=== PATIENT | male | born 1960 | race Hispanic/Latino ===

== ENCOUNTER 2017-05-31 12:36 | Inpatient (IN) | payer BC ==
[~2017-05-31] VITALS: Ht 177.8 cm; Wt 105.3 kg
[2017-05-31] MEDS ORDERED: CLINDAMYCIN HC150 MG PO (13:05)
[2017-05-31] MEDS ORDERED: AMLODIPINE BESY10 MG PO (13:05)
[2017-05-31] MEDS ORDERED: HYDROCHLOROTHIA25 MG PO (13:05)
[2017-05-31] MEDS ORDERED: TAMIFLU75 MG PO (13:05)
[2017-05-31] MEDS ORDERED: TYLENOL WITH C1 EACH PO (13:05)
[2017-05-31] MEDS ORDERED: SMZ/TMP PO (13:05)
[2017-05-31] MEDS ORDERED: GLIPIZIDE XL10 MG PO (13:05)
[2017-05-31] MEDS ORDERED: ATORVASTATIN CA20 MG PO (13:05)
[2017-05-31] MEDS ORDERED: BENZONATATE100 MG PO (13:05)
[2017-05-31] MEDS ORDERED: ONGLYZA5 MG PO (13:05)
[2017-05-31] MEDS ORDERED: PIOGLITAZONE HC45 MG PO (13:05)
[2017-05-31] MEDS ORDERED: PIPER-TAZ 3.375 GM 50 ML IV STA (13:13)
[2017-05-31 14:06] LABS: BASOPHILS # (AUTO) 0.1 (0.0-0.1); BASOPHILS % 0.6 % (0.0-1.0); EOSINOPHILS # (AUTO) 0.2 (0.0-0.4); EOSINOPHILS % 1.4 % (0.0-6.0); HEMOGLOBIN 11.3 g/dL (14.0-18.0); LYMPHOCYTES # (AUTO) 1.2 (1.0-3.2); MEAN CORPUSCULAR HEMOGLOBIN 30.6 pg (28-32); MEAN CORPUSCULAR HGB CONC 34.2 g/dL (31-35); MEAN CORPUSCULAR VOLUME 89.4 fL (81-99); MONOCYTES # (AUTO) 1.2 (0.2-0.8); MONOCYTES % 9.4 % (4.4-11.3); NEUTROPHILS # (AUTO) 10.1 (2.1-6.9); NEUTROPHILS % 79.1 % (38.7-80.0); PLATELET COUNT 328 x10e3/uL (140-360); RED BLOOD COUNT 3.69 x10e6/uL (4.3-5.7); RED CELL DISTRIBUTION WIDTH 11.9 % (11.7-14.4)
[2017-05-31 14:19] LABS: INR 1.01; PROTHROMBIN TIME 13.8 seconds (11.9-14.5)
[2017-05-31 14:20] LABS: PARTIAL THROMBOPLASTIN TIME 40.3 seconds (23.8-35.5)
[2017-05-31 14:28] LABS: ALBUMIN 2.7 g/dL (3.5-5.0); ALBUMIN/GLOBULIN RATIO 0.5 (0.8-2.0); ANION GAP 14.1 mmol/L (8-16); CALCIUM 8.6 mg/dL (8.4-10.2); CREATININE, SERUM 3.14 mg/dL (0.72-1.25); POTASSIUM 4.1 mmol/L (3.5-5.1)
--- NOTE | 2017-05-31 14:49 | Diagnostic Imaging Report ---
EXAM: FOOT LEFT COMPLETE DATE: 05/31/2017 1:07 PM INDICATION: Possible osteomyelitis. COMPARISON: None FINDINGS: Moderate vascular calcifications. Scattered degenerative changes in the foot are present. The Lisfranc joint is normally aligned. No distinct erosive changes are identified. Small plantar calculi enthesophyte, low-grade chondroid lesion in the distal tibia, and postsurgical changes in the ankle, partially visualized. IMPRESSION: Chronic and postsurgical changes as above. No definite radiographic evidence of osteomyelitis. Contrast-enhanced MRI could be obtained for further evaluation. Signed by: Dr. Parveen Sy MD on 05/31/2017 2:46 PM
[2017-05-31] MEDS ORDERED: VANCOMYCIN 1GM/NS 250 ML 250 ML IV ONE (15:00)
[2017-05-31] MEDS ORDERED: ONDANSETRON HCL INJ 2 MG/ML VIAL IV PRN (15:45)
[2017-05-31] MEDS ORDERED: MORPHINE SULFATE 2 MG/ML SYR IV PRN (15:45)
[2017-05-31] MEDS ORDERED: DEXTROSE 50% SYRINGE 50 ML IV PRN (15:45)
[2017-05-31] MEDS ORDERED: SODIUM CHLORIDE 0.9% 1000ML 1,000 ML ONE (15:52)
[2017-05-31] MEDS: SODIUM CHLORIDE 0.9% 1000ML 1,000 ML IV SCH ×2 (15:56→23:31)
[2017-05-31] MEDS: INSULIN REGULAR, HUMAN 100 UNIT/1 ML 3ML VIAL SQ SCH ×2 (16:30→21:00)
[2017-05-31 16:52] VITALS: BP 141/81
[2017-05-31 17:03] VITALS: BP 146/81
[2017-05-31 20:00] VITALS: BP 121/62
[2017-05-31] MEDS: PIPERACILLIN/TAZO 2.25 GM 50 ML IV SCH (22:00)
[2017-05-31 23:48] VITALS: BP 121/62
[2017-06-01] VITALS: BP 110/59
[2017-06-01 04:00] VITALS: BP 122/69
[2017-06-01] MEDS: PIPERACILLIN/TAZO 2.25 GM 50 ML IV SCH ×3 (06:10→22:00)
[2017-06-01 07:27] VITALS: BP 114/66
[2017-06-01] MEDS: INSULIN REGULAR, HUMAN 100 UNIT/1 ML 3ML VIAL SQ SCH ×4 (07:30→20:22)
[2017-06-01] MEDS: SODIUM CHLORIDE 0.9% 1000ML 1,000 ML IV SCH ×3 (07:31→23:31)
[2017-06-01 08:42] LABS: BASOPHILS # (AUTO) 0.1 (0.0-0.1); BASOPHILS % 0.6 % (0.0-1.0); EOSINOPHILS # (AUTO) 0.2 (0.0-0.4); EOSINOPHILS % 1.5 % (0.0-6.0); HEMATOCRIT 31.5 % (38.2-49.6); HEMOGLOBIN 10.3 g/dL (14.0-18.0); LYMPHOCYTES # (AUTO) 1.5 (1.0-3.2); LYMPHOCYTES % 11.8 % (18.0-39.1); MEAN CORPUSCULAR HGB CONC 32.7 g/dL (31-35); MEAN CORPUSCULAR VOLUME 91.8 fL (81-99); MONOCYTES # (AUTO) 1.1 (0.2-0.8); MONOCYTES % 8.8 % (4.4-11.3); NEUTROPHILS # (AUTO) 9.5 (2.1-6.9); NEUTROPHILS % 76.7 % (38.7-80.0); PLATELET COUNT 268 x10e3/uL (140-360); RED BLOOD COUNT 3.43 x10e6/uL (4.3-5.7); RED CELL DISTRIBUTION WIDTH 11.9 % (11.7-14.4)
[2017-06-01] MEDS: SAXAGLIPTIN HCL 5 MG PO SCH (09:00)
[2017-06-01] MEDS ORDERED: VANCOMYCIN 1GM/NS 250 ML 250 ML IV SCH (09:00)
[2017-06-01] MEDS: CLINDAMYCIN 300MG 50 ML IV SCH ×3 (09:15→22:00)
[2017-06-01] MEDS: HYDROCHLOROTHIAZIDE 25 MG TAB PO SCH (09:15)
[2017-06-01] MEDS: AMLODIPINE BESYLATE 10 MG TAB PO SCH (09:15)
[2017-06-01] MEDS: HEPARIN SOD (PORCINE) 5,000 UNIT/ML VIAL SC SCH ×2 (09:15→20:45)
[2017-06-01 09:24] LABS: ANION GAP 15.2 mmol/L (8-16); CREATININE, SERUM 3.15 mg/dL (0.72-1.25); POTASSIUM 4.2 mmol/L (3.5-5.1)
[2017-06-01 12:02] LABS: CHOL/HDL RATIO 4.6 (3.9-4.7)
[2017-06-01 12:07] VITALS: BP 134/75
[2017-06-01] MEDS: VANCOMYCIN 1GM/NS 250 ML 250 ML IV SCH (12:30)
[2017-06-01] MEDS: ACETAMINOPHEN/CODEINE 300MG - 30MG TAB PO SCH ×2 (12:30→17:22)
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
[2017-06-01 16:00] VITALS: BP 134/74
[2017-06-01] MEDS: PIPER-TAZ 3.375 GM 50 ML IV SCH ×2 (16:00→22:00)
[2017-06-01 20:00] VITALS: BP 100/58
[2017-06-01] MEDS: ATORVASTATIN 20 MG TAB PO SCH (20:24)
[2017-06-02] VITALS: BP 116/62
[2017-06-02] MEDS: VANCOMYCIN 1GM/NS 250 ML 250 ML IV SCH (01:00)
[2017-06-02] MEDS: ACETAMINOPHEN/CODEINE 300MG - 30MG TAB PO SCH ×4 (01:00→18:00)
[2017-06-02 04:00] VITALS: BP 110/56
[2017-06-02] MEDS: CLINDAMYCIN 300MG 50 ML IV SCH ×3 (06:00→22:36)
[2017-06-02] MEDS: PIPERACILLIN/TAZO 2.25 GM 50 ML IV SCH (06:00)
[2017-06-02] MEDS: PIPER-TAZ 3.375 GM 50 ML IV SCH ×3 (06:00→23:04)
[2017-06-02] MEDS: INSULIN REGULAR, HUMAN 100 UNIT/1 ML 3ML VIAL SQ SCH ×4 (07:30→22:36)
[2017-06-02 07:57] VITALS: BP 116/65
[2017-06-02] MEDS: SAXAGLIPTIN HCL 5 MG PO SCH (09:00)
[2017-06-02] MEDS: HYDROCHLOROTHIAZIDE 25 MG TAB PO SCH (09:54)
[2017-06-02] MEDS: AMLODIPINE BESYLATE 10 MG TAB PO SCH (09:54)
[2017-06-02] MEDS: HEPARIN SOD (PORCINE) 5,000 UNIT/ML VIAL SC SCH ×2 (10:15→22:35)
[2017-06-02 11:33] VITALS: BP 122/67
[2017-06-02 12:15] LABS: BASOPHILS # (AUTO) 0.1 (0.0-0.1); EOSINOPHILS # (AUTO) 0.4 (0.0-0.4); HEMATOCRIT 30.7 % (38.2-49.6); HEMOGLOBIN 10.1 g/dL (14.0-18.0); LYMPHOCYTES # (AUTO) 1.3 (1.0-3.2); MEAN CORPUSCULAR HEMOGLOBIN 30.3 pg (28-32); MEAN CORPUSCULAR HGB CONC 32.9 g/dL (31-35); MEAN CORPUSCULAR VOLUME 92.2 fL (81-99); MONOCYTES # (AUTO) 0.7 (0.2-0.8); MONOCYTES % 8.1 % (4.4-11.3); NEUTROPHILS # (AUTO) 5.8 (2.1-6.9); NEUTROPHILS % 69.7 % (38.7-80.0); PLATELET COUNT 359 x10e3/uL (140-360); RED BLOOD COUNT 3.33 x10e6/uL (4.3-5.7); RED CELL DISTRIBUTION WIDTH 12.1 % (11.7-14.4)
[2017-06-02 12:43] LABS: ANION GAP 9.7 mmol/L (8-16); CALCIUM 8.2 mg/dL (8.4-10.2); CREATININE, SERUM 3.22 mg/dL (0.72-1.25); POTASSIUM 4.7 mmol/L (3.5-5.1)
--- NOTE | 2017-06-02 15:40 | Progress Note ---
DATE: June 02, 2017 SUBJECTIVE: Patient seen at bedside accompanied by spouse. Denying any history of fever, chills, nausea or vomiting. OBJECTIVE VITAL SIGNS: Afebrile. Pulse rate 62, respiration 18, blood pressure 122/67, O2 saturation 94%. LABORATORY DATA: Labs noted. White blood cell count dropping to 8.3. Hemoglobin 10.1, hematocrit 30.7 with a platelet count 359,000. Still positive foul smell noted to the wound of the left great toe. Has erythema surrounding the 1st metatarsophalangeal joint with necrosis noted down to bone. ASSESSMENT: Abscess; cellulitis; grade 4 ulcer, possible osteomyelitis with capsulitis overlying the 1st MPJ. PLAN: Will continue local wound care with Santyl followed by dilute wet-to-dry Betadine. Ulceration will be debrided once again tomorrow. If not responsive, patient will be taken for surgical intervention on Friday for an I and D and possible amputation of the left great toe, partial resection of 1st metatarsal with possible flap closure depending on intraoperative findings. Will continue antibiotics and local wound care and offloading. Job#: [id number]
[2017-06-02 16:01] VITALS: BP 129/67
[2017-06-02] MEDS: SODIUM CHLORIDE 0.9% 1000ML 1,000 ML IV SCH (17:15)
[2017-06-02 20:00] VITALS: BP 129/64
--- NOTE | 2017-06-02 22:22 | Consultation ---
DATE OF CONSULTATION: June 01, 2017 ADMITTING PHYSICIAN: Dr. Lehman. REASON FOR CONSULTATION: Gangrenous changes noted to the left great toe with a grade 4 ulceration with cellulitis and foul smell with patient being diabetic. HISTORY OF PRESENT ILLNESS: This is a pleasant 57-year-old male who was seen at the bedside accompanied by brother, spouse, and son, who relate that this all started with a blister 4 months ago. It got worse. Patient just suffered a bout of flu a week ago and the infection got severely worse. Patient is currently denying any history of fevers, chills, nausea or vomiting. Did have some when he was going through the flu. PAST MEDICAL HISTORY: Remarkable for insulin-dependent diabetes times 4 years and diabetes times 15 years total. Hypertension and hypercholesterolemia. ALLERGIES: PATIENT DENIES. PAST SURGICAL HISTORY: Remarkable for tonsillectomy. SOCIAL HISTORY: Smokes socially. Drinks 4 beers a day. Does not do any type of recreational drug. Lives with his and kids. FAMILY HISTORY: Remarkable for diabetes. CURRENT MEDICATIONS: IV clindamycin. REVIEW OF SYSTEMS CARDIAC: Denying any palpitations or arrhythmias. RESPIRATORY: Denies any shortness of breath or productive cough. GASTROINTESTINAL: Denies any diarrhea or constipation. GENITOURINARY: Denies hematuria or problems voiding. VITALS: Afebrile. Pulse rate 63, respirations 18, blood pressure 114/66, O2 saturation 96%. PODIATRIC PHYSICAL EXAMINATION VASCULATURE: Pedal pulses to both the dorsalis pedis and posterior tibial arteries are palpable but diminished CFT to all toes less than 5 seconds. NEUROLOGICAL: Complete loss of protective sensation when utilizing the [place] 5.07 monofilament wire. MUSCULOSKELETAL: Examination shows muscle mass to be asymmetrical and muscle strength to be 4/5 to all muscle groups with edema noted to the left lower extremity. DERMATOLOGICAL: Grade 4 ulceration with foul smell and some drainage noted to the medial aspect of the left great toe, measuring 1.5 to 2 cm diameter. ASSESSMENT: Grade 4 ulcer, cellulitis, pre gangrene with possible osteomyelitic changes and diabetic neuropathy. PLAN: Sharp excisional debridement was carried down to bone. Devitalized tissue was sharply removed unto bone. Repeat cultures were taken for aerobic and anaerobic growth. We will start Santyl collagenase followed by dilute wet-to-dry Betadine b.i.d. We will start Zosyn 3.375 g IV piggyback q.8 h. and 1 g of vancomycin every 12 hours. We will continue to follow. Patient understands that response, he may be losing part of his foot. Job#: [id number] CF
[2017-06-02] MEDS: ATORVASTATIN 20 MG TAB PO SCH (22:33)
[2017-06-03] VITALS: BP 122/66
[2017-06-03] MEDS: SODIUM CHLORIDE 0.9% 1000ML 1,000 ML IV SCH ×2 (03:00→15:50)
[2017-06-03 04:00] VITALS: BP 134/70
[2017-06-03] MEDS: PIPER-TAZ 3.375 GM 50 ML IV SCH ×3 (05:11→22:09)
[2017-06-03] MEDS: CLINDAMYCIN 300MG 50 ML IV SCH ×2 (05:50→14:34)
[2017-06-03 07:04] LABS: BASOPHILS # (AUTO) 0.1 (0.0-0.1); BASOPHILS % 0.8 % (0.0-1.0); EOSINOPHILS # (AUTO) 0.4 (0.0-0.4); EOSINOPHILS % 4.3 % (0.0-6.0); HEMATOCRIT 29.7 % (38.2-49.6); HEMOGLOBIN 9.7 g/dL (14.0-18.0); LYMPHOCYTES # (AUTO) 1.1 (1.0-3.2); LYMPHOCYTES % 11.6 % (18.0-39.1); MEAN CORPUSCULAR HEMOGLOBIN 30.3 pg (28-32); MEAN CORPUSCULAR HGB CONC 32.7 g/dL (31-35); MEAN CORPUSCULAR VOLUME 92.8 fL (81-99); MONOCYTES # (AUTO) 0.7 (0.2-0.8); MONOCYTES % 7.3 % (4.4-11.3); NEUTROPHILS # (AUTO) 6.8 (2.1-6.9); NEUTROPHILS % 74.8 % (38.7-80.0); PLATELET COUNT 366 x10e3/uL (140-360)
[2017-06-03 07:20] LABS: CALCIUM 8.1 mg/dL (8.4-10.2); CREATININE, SERUM 2.81 mg/dL (0.72-1.25)
[2017-06-03] MEDS: INSULIN REGULAR, HUMAN 100 UNIT/1 ML 3ML VIAL SQ SCH ×4 (07:30→21:00)
[2017-06-03 07:37] VITALS: BP 123/64
[2017-06-03] MEDS: SAXAGLIPTIN HCL 5 MG PO SCH (09:00)
[2017-06-03] MEDS: HYDROCHLOROTHIAZIDE 25 MG TAB PO SCH (09:55)
[2017-06-03] MEDS: AMLODIPINE BESYLATE 10 MG TAB PO SCH (09:56)
[2017-06-03] MEDS ORDERED: ENOXAPARIN SOD INJ 40 MG/0.4 ML SYR SC SCH (10:30)
[2017-06-03] MEDS: COLLAGENASE 5 GM TUBE TOP SCH ×2 (10:31→21:00)
[2017-06-03] MEDS: ACETAMINOPHEN/CODEINE 300MG - 30MG TAB PO SCH ×3 (12:00→18:05)
[2017-06-03 12:03] VITALS: BP 135/64
[2017-06-03 16:14] VITALS: BP 152/73
--- NOTE | 2017-06-03 16:33 | Diagnostic Imaging Report ---
PROCEDURE: Frontal and lateral views of the chest. COMPARISON: None. INDICATIONS: PREOP FINDINGS: Evaluation is limited by motion artifact on the lateral view. Lines/tubes: None. Lungs: The lungs are well inflated and clear. There is no evidence of pneumonia or pulmonary edema. Pleura: There is no pleural effusion or pneumothorax. Heart and mediastinum: The heart is mildly enlarged Bones: No acute bony abnormality. IMPRESSION: Mild cardiomegaly. No evidence of infection or edema. Dictated by: Festus Berry M.D. on 06/03/2017 at 16:41 Electronically approved by: Festus eBrry M.D. on 06/03/2017 at 16:41
[2017-06-03 19:31] LABS: INR 1.08; PROTHROMBIN TIME 14.6 seconds (11.9-14.5)
[2017-06-03 20:00] VITALS: BP 145/72
[2017-06-03] MEDS: ATORVASTATIN 20 MG TAB PO SCH (22:09)
[2017-06-04] VITALS: BP 147/70
[2017-06-04] MEDS: SODIUM CHLORIDE 0.9% 1000ML 1,000 ML IV SCH (01:56)
[2017-06-04 04:00] VITALS: BP 164/78
[2017-06-04] MEDS: ACETAMINOPHEN/CODEINE 300MG - 30MG TAB PO SCH ×4 (06:00→18:40)
[2017-06-04] MEDS: PIPER-TAZ 3.375 GM 50 ML IV SCH ×3 (06:40→21:38)
[2017-06-04] MEDS ORDERED: BACITRACIN 50,000 UNIT VIAL ONE (06:55)
[2017-06-04] MEDS ORDERED: BUPIVACAINE HCL 0.5% INJ 30 ML VIAL INJ ONE (06:55)
[2017-06-04] MEDS ORDERED: BETAMETHASONE DISODIUM PHOS 6 MG/ML VIAL ONE (06:55)
[2017-06-04] MEDS: INSULIN REGULAR, HUMAN 100 UNIT/1 ML 3ML VIAL SQ SCH ×4 (07:30→21:00)
[2017-06-04] MEDS: COLLAGENASE 5 GM TUBE TOP SCH ×2 (09:00→21:00)
[2017-06-04] MEDS: SAXAGLIPTIN HCL 5 MG PO SCH (09:00)
--- NOTE | 2017-06-04 09:10 | Operative Report ---
DATE OF PROCEDURE: June 04, 2017 PREOPERATIVE DIAGNOSES 1. Grade 4 ulcer, left foot. 2. Osteomyelitis, left foot. 3. Abscess, left foot. 4. Capsulitis, left foot. POSTOPERATIVE DIAGNOSES 1. Grade 4 ulcer, left foot. 2. Osteomyelitis, left foot. 3. Abscess, left foot. 4. Capsulitis, left foot. OPERATIVE PROCEDURES 1. Incision and drainage of abscess down to bone, left foot. 2. Amputation of left great toe. 3. Partial resection, 1st metatarsal. 4. Rotational flap closure, left foot. ANESTHESIA: General. HEMOSTASIS: Pneumatic thigh tourniquet at 350 mmHg. PROCEDURE IN DETAIL: Patient was taken into the operating room and placed on the operating table in the supine position. Following induction of general anesthesia by the anesthesiologist, Webril wraps were placed around the patient's left thigh followed by application of a left thigh tourniquet. The left lower extremity was then prepped and draped in the usual aseptic manner. The following procedure was then performed. PROCEDURE #1: Incision and drainage of abscess, left foot. Attention was directed to the medial aspect of the left great toe where a linear incision was performed down to bone. A pus pocket was encountered and deep cultures were taken for aerobic and anaerobic growth. Extensive necrosis was noted overlying the proximal phalangeal joint extending down through the metatarsophalangeal joint area. At this point, it was decided to perform procedure #2, amputation of the left great toe. Attention was then directed to the dorsal aspect of the 1st MPJ where a racket-shaped incision was performed. The left great toe was then disarticulated at the metatarsophalangeal joint and sent for pathological analysis. More necrosis was noted. Via sharp and blunt dissection, necrotic tissue was removed. At this point, the thigh tourniquet was released and all ligators or pumpers were ligated or bovied as necessary. PROCEDURE #3: Partial resection of 1st metatarsal head. Attention was redirected back to the dorsal aspect of the 1st MPJ where the incision was lengthened. Capsule was released from the 1st metatarsal head and some necrosis also noted and sharply and bluntly dissected until good viable bleeding tissue was achieved. Partial resection of the 1st metatarsal head was then carried down with an oscillating saw and smoothed down with a rotating bur. The areas were then copiously flushed with sterile antibiotic solution and suctioned. PROCEDURE #4: The incision was then deepened more dorsally, laterally and plantarly medially to create a plantar flap to allow for proper closure with minimal skin tension. The flap and capsule were then reapproximated utilizing 3-0 Vicryl for capsule and 3-0 nylon for the skin. A trigger point shot of cortisone was then given to the first interspace secondary for the inflammation. Approximately, 10-15 mL of 0.5% plain Marcaine were then used to achieve local anesthesia above the surgical area. PROCEDURE #6: Trigger point shot of cortisone was given to the 1st interspace. A sterile dressing was applied. The patient was then transferred from the OR to the recovery room with vital signs stable and neurovascular status intact. No intraoperative complications were encountered. Blood loss from the surgery was minimal. Patient to remain minimal weightbearing with the aid of the surgical shoe. Will continue in the hospital for a couple days for IV antibiotics. Patients was instructed to follow up in the office. No guarantees were given. If the patient does not respond, may need a more proximal amputation. Job#: [id number] TEGAN
--- NOTE | 2017-06-04 09:14 | Diagnostic Imaging Report ---
PROCEDURE:FOOT LEFT AP \T\ LAT TECHNIQUE:AP and lateral views left foot INDICATION:First digit amputation COMPARISON:Patients [facility], DX, FOOT LEFT COMPLETE, 05/31/2017, 14:28. FINDINGS: See conclusion. CONCLUSION: 1. Left first metatarsal phalangeal amputation with medial metatarsal osteotomy. 2. Expected regional postsurgical changes including soft tissue swelling and subcutaneous emphysema. 3. The second through fourth digits are unchanged, without evidence of osteomyelitis. 4. Diffuse regional arteriosclerosis. Dictated by: Bg Starkey M.D. on 06/04/2017 at 9:22 Electronically approved by: Bg Starkey M.D. on 06/04/2017 at 9:22
[2017-06-04 09:24] LABS: BASOPHILS # (AUTO) 0.1 (0.0-0.1); BASOPHILS % 0.9 % (0.0-1.0); EOSINOPHILS # (AUTO) 0.4 (0.0-0.4); HEMATOCRIT 31.2 % (38.2-49.6); HEMOGLOBIN 10.1 g/dL (14.0-18.0); LYMPHOCYTES % 11.5 % (18.0-39.1); MEAN CORPUSCULAR HEMOGLOBIN 30.2 pg (28-32); MEAN CORPUSCULAR HGB CONC 32.4 g/dL (31-35); MEAN CORPUSCULAR VOLUME 93.4 fL (81-99); MONOCYTES # (AUTO) 0.6 (0.2-0.8); MONOCYTES % 7.1 % (4.4-11.3); NEUTROPHILS # (AUTO) 6.6 (2.1-6.9); NEUTROPHILS % 74.5 % (38.7-80.0); PLATELET COUNT 389 x10e3/uL (140-360); RED BLOOD COUNT 3.34 x10e6/uL (4.3-5.7)
[2017-06-04 09:46] VITALS: BP 157/72
[2017-06-04 09:51] LABS: ANION GAP 12.2 mmol/L (8-16); CREATININE, SERUM 2.2 mg/dL (0.72-1.25); POTASSIUM 5.2 mmol/L (3.5-5.1)
[2017-06-04] MEDS: HYDROCHLOROTHIAZIDE 25 MG TAB PO SCH (10:00)
[2017-06-04] MEDS: AMLODIPINE BESYLATE 10 MG TAB PO SCH (10:31)
[2017-06-04 11:31] VITALS: BP 162/77
[2017-06-04] MEDS ORDERED: SOD POLYSTYRENE SULFONATE SUSP 15 GM/60 ML BTL PO ONE (12:25)
[2017-06-04 16:22] VITALS: BP 134/68
[2017-06-04] MEDS ORDERED: HYDRALAZINE HCL 10 MG TAB PO SCH (17:00)
[2017-06-04] MEDS ORDERED: ONDANSETRON HCL INJ 2 MG/ML VIAL ONE (18:48)
[2017-06-04] MEDS ORDERED: PROPOFOL IV EMULSION 10 MG/ML 20 ML VIAL ONE (18:48)
[2017-06-04] MEDS ORDERED: DESFLURANE 240 ML BTL INH ONE (18:48)
[2017-06-04] MEDS ORDERED: LIDOCAINE HCL 2% LOCAL INJ 5 ML SDV VIAL INJ ONE (18:48)
[2017-06-04] MEDS ORDERED: DEXAMETHASONE SOD PHOS INJ 4 MG/ML VIAL ONE (18:48)
[2017-06-04] MEDS ORDERED: FENTANYL CITRATE/PF 100MCG/2 ML INJ ONE (19:18)
[2017-06-04] MEDS ORDERED: MIDAZOLAM HCL 2 MG/2 ML VIAL ONE (19:18)
[2017-06-04 20:00] VITALS: BP 139/73
[2017-06-04] MEDS: ATORVASTATIN 20 MG TAB PO SCH (21:38)
[2017-06-05] VITALS: BP_SYST 139; BP_SYST 155; BP_DIAS 73; BP_DIAS 82
[2017-06-05 04:00] VITALS: BP 149/72
[2017-06-05] MEDS: ACETAMINOPHEN/CODEINE 300MG - 30MG TAB PO SCH ×5 (06:00→23:35)
[2017-06-05] MEDS: PIPER-TAZ 3.375 GM 50 ML IV SCH ×3 (06:47→22:05)
[2017-06-05] MEDS: INSULIN REGULAR, HUMAN 100 UNIT/1 ML 3ML VIAL SQ SCH ×4 (07:30→21:39)
[2017-06-05 07:36] LABS: BASOPHILS # (AUTO) 0.1 (0.0-0.1); BASOPHILS % 0.8 % (0.0-1.0); EOSINOPHILS # (AUTO) 0.4 (0.0-0.4); HEMATOCRIT 31.2 % (38.2-49.6); HEMOGLOBIN 10.2 g/dL (14.0-18.0); LYMPHOCYTES # (AUTO) 1.3 (1.0-3.2); LYMPHOCYTES % 13.6 % (18.0-39.1); MEAN CORPUSCULAR HEMOGLOBIN 30.3 pg (28-32); MEAN CORPUSCULAR HGB CONC 32.7 g/dL (31-35); MEAN CORPUSCULAR VOLUME 92.6 fL (81-99); MONOCYTES # (AUTO) 0.8 (0.2-0.8); MONOCYTES % 8.7 % (4.4-11.3); NEUTROPHILS # (AUTO) 6.9 (2.1-6.9); NEUTROPHILS % 71.2 % (38.7-80.0); PLATELET COUNT 406 x10e3/uL (140-360); RED BLOOD COUNT 3.37 x10e6/uL (4.3-5.7)
[2017-06-05 07:55] LABS: ANION GAP 12.1 mmol/L (8-16); CALCIUM 8.3 mg/dL (8.4-10.2); CREATININE, SERUM 1.78 mg/dL (0.72-1.25); POTASSIUM 5.1 mmol/L (3.5-5.1)
[2017-06-05 08:20] VITALS: BP 154/72
[2017-06-05] MEDS: COLLAGENASE 5 GM TUBE TOP SCH ×2 (09:00→21:00)
[2017-06-05] MEDS: SAXAGLIPTIN HCL 5 MG PO SCH (09:58)
[2017-06-05] MEDS: HYDROCHLOROTHIAZIDE 25 MG TAB PO SCH (09:58)
[2017-06-05] MEDS: AMLODIPINE BESYLATE 10 MG TAB PO SCH (09:59)
[2017-06-05 12:23] VITALS: BP 188/88
[2017-06-05] MEDS ORDERED: NIFEDIPINE CR 30 MG TAB PO ONE (15:45)
[2017-06-05] MEDS ORDERED: MORPHINE SULFATE 2 MG/ML SYR IV PRN (15:45)
[2017-06-05] MEDS ORDERED: SODIUM CHLORIDE 0.9% 1000ML 1,000 ML IV SCH (15:45)
[2017-06-05] MEDS ORDERED: SODIUM CHLORIDE 0.9% 1000ML 1,000 ML IV ONE (15:45)
[2017-06-05] MEDS ORDERED: LACTULOSE SYRUP 20 GM/30 ML UDC PO ONE (16:00)
[2017-06-05] MEDS ORDERED: SOD POLYSTYRENE SULFONATE SUSP 15 GM/60 ML BTL PO ONE (16:00)
[2017-06-05 16:20] VITALS: BP 160/68
[2017-06-05] MEDS: NIFEDIPINE CR 30 MG TAB PO SCH (17:00)
[2017-06-05] MEDS: CALCIUM CARBONATE 500 MG CHEWABLE TABS PO SCH (17:54)
[2017-06-05] MEDS: DOCUSATE SODIUM 100 MG CAP PO SCH (17:54)
[2017-06-05 20:00] VITALS: BP 151/75
[2017-06-05] MEDS: ATORVASTATIN 20 MG TAB PO SCH (21:38)
[2017-06-06] VITALS: BP 137/77
[2017-06-06 04:00] VITALS: BP 145/82
[2017-06-06] MEDS: PIPER-TAZ 3.375 GM 50 ML IV SCH (05:38)
[2017-06-06] MEDS: ACETAMINOPHEN/CODEINE 300MG - 30MG TAB PO SCH ×2 (05:39→11:04)
[2017-06-06 06:45] LABS: BASOPHILS # (AUTO) 0.1 (0.0-0.1); BASOPHILS % 0.9 % (0.0-1.0); EOSINOPHILS # (AUTO) 0.3 (0.0-0.4); EOSINOPHILS % 3.7 % (0.0-6.0); HEMATOCRIT 31.8 % (38.2-49.6); HEMOGLOBIN 10.4 g/dL (14.0-18.0); LYMPHOCYTES # (AUTO) 1.6 (1.0-3.2); LYMPHOCYTES % 17.9 % (18.0-39.1); MEAN CORPUSCULAR HEMOGLOBIN 30.1 pg (28-32); MEAN CORPUSCULAR HGB CONC 32.7 g/dL (31-35); MEAN CORPUSCULAR VOLUME 91.9 fL (81-99); MONOCYTES # (AUTO) 0.8 (0.2-0.8); MONOCYTES % 8.5 % (4.4-11.3); NEUTROPHILS # (AUTO) 6.1 (2.1-6.9); PLATELET COUNT 403 x10e3/uL (140-360); RED BLOOD COUNT 3.46 x10e6/uL (4.3-5.7)
[2017-06-06 07:02] LABS: ANION GAP 11.5 mmol/L (8-16); CALCIUM 8.7 mg/dL (8.4-10.2); CREATININE, SERUM 1.57 mg/dL (0.72-1.25); MAGNESIUM 2.1 MG/DL (1.3-2.1); POTASSIUM 4.5 mmol/L (3.5-5.1)
[2017-06-06] MEDS: INSULIN REGULAR, HUMAN 100 UNIT/1 ML 3ML VIAL SQ SCH ×4 (07:30→21:10)
[2017-06-06 07:57] VITALS: BP 133/79
[2017-06-06] MEDS: COLLAGENASE 5 GM TUBE TOP SCH ×2 (09:00→21:00)
[2017-06-06] MEDS ORDERED: NON-FORMULARY MEDICATION (Glipizide (Glipizide Xl) 10 MG) PO SCH (09:00)
[2017-06-06] MEDS: SAXAGLIPTIN HCL 5 MG PO SCH (09:00)
[2017-06-06] MEDS: DOCUSATE SODIUM 100 MG CAP PO SCH ×2 (09:26→17:29)
[2017-06-06] MEDS: PIOGLITAZONE HCL 45 MG TAB PO SCH (09:26)
[2017-06-06] MEDS: HYDROCHLOROTHIAZIDE 25 MG TAB PO SCH (09:26)
[2017-06-06] MEDS: GLIPIZIDE 5 MG TAB ER PO SCH (09:26)
[2017-06-06] MEDS: CALCIUM CARBONATE 500 MG CHEWABLE TABS PO SCH ×2 (09:27→17:41)
[2017-06-06] MEDS: NIFEDIPINE CR 30 MG TAB PO SCH (09:27)
[2017-06-06 11:43] VITALS: BP 169/89
[2017-06-06] MEDS ORDERED: TRAMADOL HCL 50 MG TAB PO PRN (13:00)
[2017-06-06] MEDS: HYDRALAZINE HCL 20 MG/ML VIAL IV PRN (13:21)
[2017-06-06] MEDS: PIPERACILLIN/TAZOBAC 3.375 GM in SODIUM CHLORIDE 0.9% 100 ML IV SCH ×2 (14:19→21:09)
[2017-06-06 16:11] VITALS: BP 131/66
[2017-06-06 20:30] VITALS: BP 157/81
[2017-06-06] MEDS: ATORVASTATIN 20 MG TAB PO SCH (21:09)
[2017-06-07 00:19] VITALS: BP 151/76
[2017-06-07 04:20] VITALS: BP 161/84
[2017-06-07] MEDS: PIPERACILLIN/TAZOBAC 3.375 GM in SODIUM CHLORIDE 0.9% 100 ML IV SCH ×2 (05:07→14:44)
[2017-06-07] MEDS: INSULIN REGULAR, HUMAN 100 UNIT/1 ML 3ML VIAL SQ SCH ×3 (07:30→16:30)
[2017-06-07 07:48] VITALS: BP 172/82
[2017-06-07 07:50] LABS: BASOPHILS # (AUTO) 0.1 (0.0-0.1); BASOPHILS % 1.2 % (0.0-1.0); EOSINOPHILS # (AUTO) 0.4 (0.0-0.4); EOSINOPHILS % 4.8 % (0.0-6.0); HEMOGLOBIN 10.5 g/dL (14.0-18.0); LYMPHOCYTES # (AUTO) 1.3 (1.0-3.2); LYMPHOCYTES % 17.2 % (18.0-39.1); MEAN CORPUSCULAR HEMOGLOBIN 30.1 pg (28-32); MEAN CORPUSCULAR HGB CONC 32.8 g/dL (31-35); MEAN CORPUSCULAR VOLUME 91.7 fL (81-99); MONOCYTES # (AUTO) 0.6 (0.2-0.8); MONOCYTES % 8.3 % (4.4-11.3); NEUTROPHILS % 66.5 % (38.7-80.0); PLATELET COUNT 419 x10e3/uL (140-360); RED BLOOD COUNT 3.49 x10e6/uL (4.3-5.7); RED CELL DISTRIBUTION WIDTH 12.1 % (11.7-14.4)
[2017-06-07 08:08] LABS: ANION GAP 12.4 mmol/L (8-16); CALCIUM 9.1 mg/dL (8.4-10.2); CREATININE, SERUM 1.56 mg/dL (0.72-1.25); POTASSIUM 4.4 mmol/L (3.5-5.1)
[2017-06-07] MEDS: CALCIUM CARBONATE 500 MG CHEWABLE TABS PO SCH ×2 (08:24→17:04)
[2017-06-07] MEDS: COLLAGENASE 5 GM TUBE TOP SCH (08:24)
[2017-06-07] MEDS: GLIPIZIDE 5 MG TAB ER PO SCH (08:25)
[2017-06-07] MEDS: PIOGLITAZONE HCL 45 MG TAB PO SCH (08:25)
[2017-06-07] MEDS: NIFEDIPINE CR 30 MG TAB PO SCH (08:25)
[2017-06-07] MEDS: HYDROCHLOROTHIAZIDE 25 MG TAB PO SCH (08:25)
[2017-06-07] MEDS: SAXAGLIPTIN HCL 5 MG PO SCH (08:25)
[2017-06-07] MEDS: DOCUSATE SODIUM 100 MG CAP PO SCH ×2 (08:25→16:51)
[2017-06-07] MEDS ORDERED: LEVAQUIN500 MG PO (11:22)
[2017-06-07 11:38] VITALS: BP 165/77
[2017-06-07] MEDS ORDERED: AMLODIPINE BESYLATE 10 MG TAB PO ONE (12:30)
[2017-06-07] MEDS: HYDRALAZINE HCL 20 MG/ML VIAL IV PRN (14:46)
[2017-06-07 15:39] VITALS: BP 158/76
[2017-06-07 16:21] VITALS: BP 148/66
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
== END 2017-06-07 17:15 | disposition home or self-care (01) | DRG 617 ==
LOC: ER 12:36 → ERHOLD 15:38 → MED/SURG3 16:27
PROVIDERS: ADMIT Internal Medicine; ATTEND Internal Medicine
PROC: 0QBR0ZZ Excision of Left Toe Phalanx, Open Approach (ICD-10-PCS; 2017-06-01)
PROC: 0Y6Q0Z0 Detachment at Left 1st Toe, Complete, Open Approach (ICD-10-PCS; principal; 2017-06-04 07:30)
DX: E11.69 Type 2 diabetes mellitus with other specified complication (principal); M86.9 Osteomyelitis, unspecified; E11.21 Type 2 diabetes mellitus with diabetic nephropathy; E11.65 Type 2 diabetes mellitus with hyperglycemia; E87.1 Hypo-osmolality and hyponatremia; E11.52 Type 2 diabetes mellitus with diabetic peripheral angiopathy with gangrene; E11.22 Type 2 diabetes mellitus with diabetic chronic kidney disease; N18.3 Chronic kidney disease, stage 3 (moderate); E11.621 Type 2 diabetes mellitus with foot ulcer; L97.524 Non-pressure chronic ulcer of other part of left foot with necrosis of bone; I12.9 Hypertensive chronic kidney disease with stage 1 through stage 4 chronic kidney disease, or unspecified chronic kidney disease; E11.42 Type 2 diabetes mellitus with diabetic polyneuropathy; Z79.4 Long term (current) use of insulin; L03.032 Cellulitis of left toe; E66.9 Obesity, unspecified; Z68.32 Body mass index [BMI] 32.0-32.9, adult; E87.5 Hyperkalemia; K59.00 Constipation, unspecified; E83.52 Hypercalcemia; E78.5 Hyperlipidemia, unspecified; B96.4 Proteus (mirabilis) (morganii) as the cause of diseases classified elsewhere; B99.8 Other infectious disease
CPT/HCPCS: 36415; 71020; 80048; 80053; 80061; 80202; 82948; 83036; 83735; 85025; 85610; 85651; 85730; 86140; 87071; 87075; 87086; 87186; 87205; 88305; 88311; 93005; 96367; 96372; 99284; J0360; J0720; J1100; J1644; J1650; J2001; J2250; J2270; J2405; J2543; J3370; J7030; J7050

== ENCOUNTER 2017-09-12 11:13 | Inpatient (IN) | payer BC ==
[~2017-09-12] VITALS: Ht 177.8 cm; Wt 109.9 kg
[~2017-09-12 11:13] MED LIST: AMLODIPINE BESY10 MG PO; ATORVASTATIN CA20 MG PO; BENZONATATE100 MG PO; CLINDAMYCIN HC150 MG PO; GLIPIZIDE XL10 MG PO; HYDROCHLOROTHIA25 MG PO; LEVAQUIN500 MG PO; ONGLYZA5 MG PO; PIOGLITAZONE HC45 MG PO; SMZ/TMP PO; TAMIFLU75 MG PO; TYLENOL WITH C1 EACH PO
--- OUTSIDE RECORDS SUMMARY | 2017-09-12 11:15 | XMS REPORT ---
[facility] Address Unknown Phone Unavailable Care Team Providers Care Best Second [employer] Name Role Phone ESTELLE MATA Unavailable Unavailable Problems This patient has no known problems. Allergies, Adverse Reactions, Alerts This patient has no known allergies or adverse reactions. Medications This patient has no known medications. Results Test Description Test Time Test Comments Text Results Atomic Results Result Comments FOOT LEFT AP LAT [place] [address] Patient Name: GEN GORMAN MR #: [id number] : 1960 Age/Sex: 57/M Req #: [id number] [facility] Physician: ESTELLE MATA MD Ordered by: KAILYN ALEGRIA DPM Report #: [id number] Location: [facility] Room/Bed: [facility] _ Procedure: [id number] DX/FOOT LEFT AP LAT Exam Date: Exam Time: 0850 REPORT STATUS: Signed PROCEDURE: FOOT LEFT AP T LAT TECHNIQUE: AP and lateral views left foot INDICATION: First digit amputation COMPARISON: [facility] , DX, FOOT LEFT COMPLETE, 05/31/2017, 14:28. FINDINGS: See conclusion. CONCLUSION: 1. Left first metatarsal phalangeal amputation with medial metatarsal osteotomy. 2. Expected regional postsurgical changes including soft tissue swelling and subcutaneous emphysema. 3. The second through fourth digits are unchanged, without evidence of osteomyelitis. 4. Diffuse regional arteriosclerosis. Dictated by: Landen Starkey M.D. on 06/04/2017 at 9:22 Electronically approved by: Landen Starkey M.D. on 06/04/2017 at 9:22 Dictated By: LANDEN STARKEY MD 1 Transcribed By: NARINDER on 06/04/17921 COPY TO: KAILYN ALEGRIA DPM CHEST 2 VIEWS [place] [address] Patient Name: GEN GORMAN MR #: [id number] : 1960 Age/Sex: 57/M Req #: [id number] Adm Physician: ESTELLE MATA MD Ordered by: KAILYN ALEGRIA DPM Report #: [id number] Location: [facility] Room/Bed: [facility] _ Procedure: [id number] DX/CHEST 2 VIEWS Exam Date: Exam Time: 1510 REPORT STATUS: Signed PROCEDURE: Frontal and lateral views of the chest. COMPARISON: None. INDICATIONS: PREOP FINDINGS: Evaluation is limited by motion artifact on the lateral view. Lines/tubes: None. Lungs: The lungs are well inflated and clear. There is no evidence of pneumonia or pulmonary edema. Pleura: There is no pleural effusion or pneumothorax. Heart and mediastinum: The heart is mildly enlarged Bones: No acute bony abnormality. IMPRESSION: Mild cardiomegaly. No evidence of infection or edema. Dictated by: Chinyere Berry M.D. on 06/03/2017 at 16 :41 Electronically approved by: Chinyere Berry M.D. on 06/03/2017 at 16:41 Dictated By: CHINYERE BERRY MD 40 Transcribed By: NARINDER on 06/03/171640 COPY TO: KAILYN ALEGRIA DPRenee FOOT LEFT COMPLETE [place] [address] Patient Name: GEN GORMAN MR #: [id number] : 1960 Age/Sex: 57/M Req #: [id number] Adm Physician: Ordered by: HEIDY SOTO MD Report #: [id number] Location: ER Room/Bed: Procedure: [id number] DX/FOOT LEFT COMPLETE Exam Date: 05/31/17 Exam Time: 1434 REPORT STATUS: Signed EXAM: FOOT LEFT COMPLETE DATE: 05/31/2017 1:07 PM INDICATION: Possible osteomyelitis. COMPARISON: None FINDINGS: Moderate vascular calcifications. Scattered degenerative changes in the foot are present. The Lisfranc joint is normally aligned. No distinct erosive changes are identified. Small plantar calculi enthesophyte, low-grade chondroid lesion in the distal tibia, and postsurgical changes in the ankle, partially visualized. IMPRESSION: Chronic and postsurgical changes as above. No definite radiographic evidence of osteomyelitis. Contrast-enhanced MRI could be obtained for further evaluation. Signed by: Dr. Parveen Sy MD on 05/31/2017 2:46 PM Dictated By: PARVEEN SY MD 1446 Transcribed By: KENNY on 05/31/17 144 COPY TO: HEIDY SOTO MD
--- NOTE | 2017-09-12 12:48 | Diagnostic Imaging Report ---
PROCEDURE:FOOT LEFT COMPLETE TECHNIQUE:AP, lateral and oblique views left foot INDICATION:Diabetic foot. Left second digit irregularity. COMPARISON:Patients [facility], DX, FOOT LEFT AP \T\ LAT, 06/04/2017, 6:41. FINDINGS: Second toe tuft erosion with overlying soft tissue defect. Remaining imaged regional skeleton is intact. Postoperative sequela of the great toe phalanx amputation and bunionectomy. Remaining regional skeleton is intact. Internal fixation of the distal tibia and fibula. Diffuse arteriosclerosis. CONCLUSION: Second toe tuft osteomyelitis. Dictated by: Bg Starkey M.D. on 09/12/2017 at 12:49 Electronically approved by: Bg Starkey M.D. on 09/12/2017 at 12:49
[2017-09-12 14:42] LABS: BASOPHILS # (AUTO) 0.1 (0.0-0.1); EOSINOPHILS # (AUTO) 0.4 (0.0-0.4); EOSINOPHILS % 5.3 % (0.0-6.0); HEMATOCRIT 31.8 % (38.2-49.6); HEMOGLOBIN 10.5 g/dL (14.0-18.0); LYMPHOCYTES # (AUTO) 1.2 (1.0-3.2); LYMPHOCYTES % 16.2 % (18.0-39.1); MEAN CORPUSCULAR HEMOGLOBIN 30.8 pg (28-32); MEAN CORPUSCULAR VOLUME 93.3 fL (81-99); MONOCYTES # (AUTO) 0.8 (0.2-0.8); MONOCYTES % 10.4 % (4.4-11.3); NEUTROPHILS # (AUTO) 4.8 (2.1-6.9); NEUTROPHILS % 66.8 % (38.7-80.0); PLATELET COUNT 252 x10e3/uL (140-360); RED BLOOD COUNT 3.41 x10e6/uL (4.3-5.7); RED CELL DISTRIBUTION WIDTH 12.8 % (11.7-14.4)
[2017-09-12 14:46] LABS: INR 1.16; PROTHROMBIN TIME 13.9 seconds (11.9-14.5)
[2017-09-12 14:47] LABS: PARTIAL THROMBOPLASTIN TIME 42.1 seconds (23.8-35.5)
[2017-09-12 14:56] LABS: ALANINE AMINOTRANSFERASE 15 IU/L (0-55); ALBUMIN 3.1 g/dL (3.5-5.0); ALBUMIN/GLOBULIN RATIO 0.8 (0.8-2.0); ALKALINE PHOSPHATASE 50 IU/L (40-150); ANION GAP 11.2 mmol/L (8-16); BLOOD UREA NITROGEN 35 mg/dL (7-26); BUN/CREATININE RATIO 20 (6-25); CALCIUM 8.7 mg/dL (8.4-10.2); CARBON DIOXIDE 24 mmol/L (22-29); CHLORIDE 109 mmol/L (98-107); CREATINE KINASE 290 IU/L (30-200); CREATININE, SERUM 1.75 mg/dL (0.72-1.25); EST GLOMERULAR FILTRATION RATE 41 ML/MIN (60-); GLUCOSE 154 mg/dL (74-118); POTASSIUM 4.2 mmol/L (3.5-5.1); SODIUM 140 mmol/L (136-145)
[2017-09-12] MEDS ORDERED: ONDANSETRON HCL INJ 2 MG/ML VIAL IV PRN (15:45)
[2017-09-12] MEDS: VANCOMYCIN 1GM/NS 250 ML 250 ML IV SCH (16:15)
[2017-09-12] MEDS: SODIUM CHLORIDE 0.9% 1000ML 1,000 ML IV SCH ×2 (16:15→23:33)
[2017-09-12] MEDS ORDERED: DEXTROSE 50% SYRINGE 50 ML IV PRN (17:00)
[2017-09-12 17:39] VITALS: BP_SYST 187; BP_SYST 190; BP_DIAS 79; BP_DIAS 84
[2017-09-12] MEDS: PIPER-TAZ 3.375 GM 50 ML IV SCH ×2 (17:51→23:56)
[2017-09-12 18:10] VITALS: BP 190/79
[2017-09-12 20:21] VITALS: BP 187/84
[2017-09-12] MEDS: NIFEDIPINE CR 30 MG TAB PO SCH (20:40)
[2017-09-12] MEDS: INSULIN REGULAR, HUMAN 100 UNIT/1 ML 3ML VIAL SQ SCH (20:40)
[2017-09-12] MEDS: HYDRALAZINE HCL 25 MG TAB PO SCH (20:40)
[2017-09-12 22:23] LABS: CREATINE KINASE 220 IU/L (30-200)
[2017-09-13] VITALS (8 sets, daily range): BP systolic 134–160; BP diastolic 63–96
[2017-09-13] MEDS: VANCOMYCIN 1GM/NS 250 ML 250 ML IV SCH ×2 (05:12→17:30)
[2017-09-13 06:02] LABS: BASOPHILS # (AUTO) 0.1 (0.0-0.1); BASOPHILS % 1.3 % (0.0-1.0); EOSINOPHILS # (AUTO) 0.5 (0.0-0.4); EOSINOPHILS % 6.3 % (0.0-6.0); HEMATOCRIT 33.2 % (38.2-49.6); HEMOGLOBIN 11.1 g/dL (14.0-18.0); LYMPHOCYTES % 14.2 % (18.0-39.1); MEAN CORPUSCULAR HGB CONC 33.4 g/dL (31-35); MEAN CORPUSCULAR VOLUME 92.7 fL (81-99); MONOCYTES # (AUTO) 0.7 (0.2-0.8); MONOCYTES % 9.5 % (4.4-11.3); NEUTROPHILS # (AUTO) 4.9 (2.1-6.9); NEUTROPHILS % 68.3 % (38.7-80.0); PLATELET COUNT 253 x10e3/uL (140-360); RED BLOOD COUNT 3.58 x10e6/uL (4.3-5.7); RED CELL DISTRIBUTION WIDTH 12.6 % (11.7-14.4)
[2017-09-13 06:34] LABS: INR 1.06
[2017-09-13 06:35] LABS: PARTIAL THROMBOPLASTIN TIME 41.6 seconds (23.8-35.5)
[2017-09-13 06:44] LABS: ALBUMIN/GLOBULIN RATIO 0.8 (0.8-2.0); CALCIUM 8.4 mg/dL (8.4-10.2); CHOL/HDL RATIO 2.2 (3.9-4.7); CREATININE, SERUM 1.73 mg/dL (0.72-1.25)
[2017-09-13] MEDS: INSULIN REGULAR, HUMAN 100 UNIT/1 ML 3ML VIAL SQ SCH ×4 (07:30→21:17)
[2017-09-13] MEDS: SODIUM CHLORIDE 0.9% 1000ML 1,000 ML IV SCH ×2 (07:33→15:33)
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
[2017-09-13] MEDS: PIPER-TAZ 3.375 GM 50 ML IV SCH ×2 (08:42→18:51)
[2017-09-13] MEDS: NIFEDIPINE CR 30 MG TAB PO SCH (08:42)
[2017-09-13] MEDS: BENZONATATE 100 MG CAP PO SCH ×3 (08:42→21:14)
[2017-09-13] MEDS: HYDRALAZINE HCL 25 MG TAB PO SCH ×3 (08:42→21:15)
[2017-09-13] MEDS: HYDROCHLOROTHIAZIDE 25 MG TAB PO SCH (08:42)
[2017-09-13] MEDS: FAMOTIDINE 20 MG TAB PO SCH ×2 (08:42→17:30)
[2017-09-13 08:56] LABS: CREATINE KINASE 182 IU/L (30-200)
[2017-09-13] MEDS ORDERED: SAXAGLIPTIN HCL 5 MG PO SCH (09:00)
[2017-09-13] MEDS: SAXAGLIPTIN HCL 5 MG PO SCH (09:00)
[2017-09-13] MEDS ORDERED: AMLODIPINE BESYLATE 10 MG TAB PO SCH (09:00)
[2017-09-13] MEDS: ENOXAPARIN SOD INJ 40 MG/0.4 ML SYR SC SCH (17:30)
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
[2017-09-13] MEDS: ATORVASTATIN 20 MG TAB PO SCH (21:14)
[2017-09-14] VITALS (10 sets, daily range): BP systolic 109–173; BP diastolic 61–83
[2017-09-14] MEDS: SODIUM CHLORIDE 0.9% 1000ML 1,000 ML IV SCH ×3 (00:19→15:33)
[2017-09-14] MEDS: NIFEDIPINE CR 30 MG TAB PO SCH ×3 (00:54→21:12)
[2017-09-14] MEDS: PIPER-TAZ 3.375 GM 50 ML IV SCH ×3 (00:55→16:26)
[2017-09-14] MEDS: VANCOMYCIN 1GM/NS 250 ML 250 ML IV SCH ×2 (05:34→16:30)
[2017-09-14] MEDS: FAMOTIDINE 20 MG TAB PO SCH ×2 (07:30→16:25)
[2017-09-14] MEDS: INSULIN REGULAR, HUMAN 100 UNIT/1 ML 3ML VIAL SQ SCH ×4 (07:30→21:45)
[2017-09-14] MEDS: HYDROCHLOROTHIAZIDE 25 MG TAB PO SCH (09:00)
[2017-09-14] MEDS: SAXAGLIPTIN HCL 5 MG PO SCH (09:00)
[2017-09-14] MEDS: COLLAGENASE 5 GM TUBE TOP SCH (09:00)
[2017-09-14] MEDS: HYDRALAZINE HCL 25 MG TAB PO SCH ×3 (09:00→21:12)
[2017-09-14] MEDS: BENZONATATE 100 MG CAP PO SCH ×3 (09:00→21:11)
--- NOTE | 2017-09-14 11:08 | Progress Note ---
DATE: September 14, 2017 SUBJECTIVE: Patient seen at bedside doing better. Does relate that he had some bleeding yesterday after the ulcer debridement. Is has stopped. He is for the 1st time denying any history of fever or chills in the evenings. Decreased pain to the left lower extremity and decreased swelling. OBJECTIVE: Vitals: Afebrile. Pulse rate 71, respirations 20, blood pressure 152/82, O2 saturation 98%. Ulceration is looking better. Bone exposed. Minimal foul smell. Some drainage present with some necrosis noted down to bone. Pedal pulses are palpable. Decreased edema to the left lower extremity. ASSESSMENT: Osteomyelitis with a grade-4 ulcer with cellulitis, 2nd toe left foot, with diabetic neuropathy. PLAN: Will continue IV antibiotics such as vancomycin and Zosyn. Will continue local wound care with diluted wet-to-dry and Santyl to the affected area. Patient will let the foot continue to demarcate. Patient is aware surgery will be done sometime this week. Job#: [id number]
--- NOTE | 2017-09-14 16:12 | Progress Note ---
DATE: September 14, 2017 TIME: 1545 MEDICINE PROGRESS NOTE OVERNIGHT: No acute events. REVIEW OF SYSTEMS: Patient denies any nausea, vomiting, diarrhea, dizziness, chest pain or shortness of breath. PHYSICAL EXAMINATION VITAL SIGNS: T 97.5, P 71, R 20, BP 143/78, O2 sat 98% on room air. GENERAL: This is a tired-appearing man sitting on side of bed. HEENT: Atraumatic without sinus tenderness. Nares are patent. PERRLA. Oral mucosa moist and intact. CV: S1 and S2 auscultated without extra cardiac sounds. LUNGS: Bilateral breath sounds clear to auscultation with fair excursion. ABDOMEN: Soft, not distended, with minimal tenderness in the left upper quadrant without deep or light palpation. EXTREMITIES: No edema. Moves all 4 extremities. Tenderness at the right foot. The left foot is obscured by a dressing on this day. SKIN: Dry. PSYCHIATRIC: Normal affect. LABS: Reviewed. MEDICATIONS 1. Sliding scale regular insulin. 2. Hydrochlorothiazide 25 mg p.o. daily. 3. Tessalon Perles 100 mg p.o. t.i.d. 4. Procardia 30 mg q.12 h. 5. Hydralazine 25 mg p.o. t.i.d. 6. IV Zosyn q.8 h. 7. IV normal saline 125 mL an hour. 8. B.I.D. p.o. Pepcid 20 mg. 9. IV vancomycin q.12 h. 10. Lipitor 40 mg p.o. nightly. 11. Lovenox subcutaneous daily 40 mg. 12. Santyl to ulcer. 13. P.R.N. Tylenol No. 3. ASSESSMENT AND PLAN: This is a 57-year-old man with: 1. Left foot 2nd digit osteomyelitis: Further surgical intervention per podiatry pending this week. 2. Chronic kidney disease, stage 3, with diabetic nephropathy: Will follow up function in a.m. 3. Diabetes mellitus, type 2: Hemoglobin A1c 6.3. on admission. Triglycerides within normal limits at 94. Cholesterol 92, LDL 32, HDL 41. 4. Hypertension: Medications as above. Patient admitted with systolic of 164. Over the last 24 hours, patient with blood pressure max systolic of 167, min systolic 109. Continue regimen. 5. Hyperlipidemia: Values as above. Continue statin. Well controlled. 6. Prophylaxis: Lovenox and Pepcid. 7. Disposition: We will follow podiatry's recommendations. Plan of care with IV Zosyn and vancomycin. Cultures of the 2nd left toe noted to be positive for gram-negative rods of the Streptococcus viridans variety. The anaerobic culture is still pending. We will obtain vancomycin trough as indicated. Dictated by Devon Alcala NP. Job#: [id number]
[2017-09-14] MEDS: ENOXAPARIN SOD INJ 40 MG/0.4 ML SYR SC SCH (17:00)
[2017-09-14] MEDS: ATORVASTATIN 20 MG TAB PO SCH (21:12)
[2017-09-14] MEDS: ACETAMINOPHEN/CODEINE 300MG - 30MG TAB PO PRN (23:56)
[2017-09-15] VITALS (8 sets, daily range): BP systolic 157–189; BP diastolic 74–93
[2017-09-15] MEDS: SODIUM CHLORIDE 0.9% 1000ML 1,000 ML IV SCH ×4 (04:19→23:33)
[2017-09-15] MEDS: PIPER-TAZ 3.375 GM 50 ML IV SCH ×3 (04:35→17:00)
[2017-09-15] MEDS: VANCOMYCIN 1GM/NS 250 ML 250 ML IV SCH ×2 (04:35→16:30)
[2017-09-15 06:08] LABS: BASOPHILS # (AUTO) 0.1 (0.0-0.1); BASOPHILS % 1.4 % (0.0-1.0); EOSINOPHILS # (AUTO) 0.4 (0.0-0.4); EOSINOPHILS % 7.6 % (0.0-6.0); HEMATOCRIT 29.1 % (38.2-49.6); HEMOGLOBIN 9.6 g/dL (14.0-18.0); LYMPHOCYTES # (AUTO) 1.5 (1.0-3.2); LYMPHOCYTES % 29.1 % (18.0-39.1); MEAN CORPUSCULAR HEMOGLOBIN 31.2 pg (28-32); MEAN CORPUSCULAR VOLUME 94.5 fL (81-99); MONOCYTES # (AUTO) 1.1 (0.2-0.8); NEUTROPHILS % 39.5 % (38.7-80.0); PLATELET COUNT 218 x10e3/uL (140-360); RED BLOOD COUNT 3.08 x10e6/uL (4.3-5.7); RED CELL DISTRIBUTION WIDTH 12.6 % (11.7-14.4)
[2017-09-15 06:39] LABS: ALBUMIN 2.9 g/dL (3.5-5.0); ALBUMIN/GLOBULIN RATIO 0.9 (0.8-2.0); ANION GAP 10.1 mmol/L (8-16); CALCIUM 8.4 mg/dL (8.4-10.2); CREATININE, SERUM 1.55 mg/dL (0.72-1.25); POTASSIUM 4.1 mmol/L (3.5-5.1)
[2017-09-15] MEDS: INSULIN REGULAR, HUMAN 100 UNIT/1 ML 3ML VIAL SQ SCH ×5 (07:30→21:00)
[2017-09-15] MEDS: FAMOTIDINE 20 MG TAB PO SCH ×2 (07:30→16:30)
[2017-09-15] MEDS: HYDROCHLOROTHIAZIDE 25 MG TAB PO SCH (09:00)
[2017-09-15] MEDS: SAXAGLIPTIN HCL 5 MG PO SCH (09:00)
[2017-09-15] MEDS: NIFEDIPINE CR 30 MG TAB PO SCH ×2 (09:00→21:00)
[2017-09-15] MEDS: BENZONATATE 100 MG CAP PO SCH ×3 (09:00→21:00)
[2017-09-15] MEDS: HYDRALAZINE HCL 25 MG TAB PO SCH ×3 (09:00→21:00)
[2017-09-15] MEDS: COLLAGENASE 5 GM TUBE TOP SCH (09:00)
--- NOTE | 2017-09-15 09:16 | Progress Note ---
DATE: September 15, 2017 SUBJECTIVE: Patient seen at bedside. Doing better. Denying history of fever, chills, nausea or vomiting. OBJECTIVE: Vitals: Afebrile. Pulse rate 64, respirations 18, blood pressure 157/86, O2 saturation 95%. Labs show a white blood cell count now 5.01, hemoglobin 9.6, hematocrit 29.1 with a platelet count of 218. Ulceration to the 2nd toe, left foot, is looking better. Decreased cellulitis. Decreased edema. Still some foul smell present and some drainage to the toe. ASSESSMENT: Osteomyelitis with a grade-4 ulcer and cellulitis, possible abscess. PLAN: Will continue local wound care. Continue to let the foot demarcate and toe. The patient will be taken for surgical intervention sometime this week. Will continue IV antibiotics and local wound care with Santyl followed by dilute wet-to-dry Betadine. Job#: [id number]
[2017-09-15] MEDS: ENOXAPARIN SOD INJ 40 MG/0.4 ML SYR SC SCH (17:00)
[2017-09-15] MEDS: ATORVASTATIN 40 MG TAB PO SCH (21:00)
[2017-09-16] VITALS (7 sets, daily range): BP systolic 143–177; BP diastolic 70–87
[2017-09-16] MEDS: PIPER-TAZ 3.375 GM 50 ML IV SCH ×3 (01:00→16:34)
[2017-09-16] MEDS: VANCOMYCIN 1GM/NS 250 ML 250 ML IV SCH (04:30)
--- NOTE | 2017-09-16 07:22 | Progress Note ---
DATE: September 15, 2017 TIME: 7 a.m. OVERNIGHT: No events. REVIEW OF SYSTEMS: Denies any dizziness. PHYSICAL EXAMINATION VITAL SIGNS: Reviewed. GENERAL: A tired-appearing man resting in bed. HEENT: Anicteric. CARDIOVASCULAR: Normal S1 and S2. LUNGS: Moderate breath sounds. ABDOMEN: Soft, nontender and nondistended. EXTREMITIES: He has a dressing on the right foot secondary to ulcer at the tip. He has left foot with absent great toe. SKIN: Dry. PSYCHIATRIC: Flat affect. LABS: Reviewed. MEDICATIONS: Reviewed. ASSESSMENT: A 57-year-old man with: 1. Left foot 2nd digit osteomyelitis. 2. Chronic kidney disease, stage 3 in the setting of diabetic nephropathy. 3. Diabetes mellitus, type 2: Hemoglobin A1c 6.3, LDL 32. 4. Hypertension. 5. Hyperlipidemia. PLAN 1. Continue antibiotics. 2. Surgery pending. 3. Continue diabetes management. 4. Blood pressure control. 5. Pain control. Job#: [id number] [place]
--- NOTE | 2017-09-16 07:27 | Progress Note ---
DATE: September 16, 2017 TIME: 6:38 a.m. OVERNIGHT: No events. REVIEW OF SYSTEMS: Denies any dizziness. PHYSICAL EXAMINATION VITAL SIGNS: Reviewed. GENERAL: A tired-appearing man resting in bed. HEENT: Anicteric. CARDIOVASCULAR: Normal S1 and S2. LUNGS: Moderate breath sounds. ABDOMEN: Soft and nontender. EXTREMITIES: He has no edema or calf tenderness. He has left foot with great toe absent. He has 2nd digit with tip with an ulcer present. He has a dressing in place. SKIN: Dry. PSYCHIATRIC: Flat affect. LABS: Reviewed. MEDICATIONS: Reviewed. ASSESSMENT: A 57-year-old man with: 1. Left foot 2nd digit osteomyelitis. 2. Chronic kidney disease, stage 3/diabetic nephropathy. 3. Diabetes mellitus, type 2: Hemoglobin A1c 6.3, LDL 32. 4. Hypertension. 5. Hyperlipidemia. 6. Diabetic foot ulcer positive for Pseudomonas aeruginosa and Streptococcus viridans. PLAN 1. Continue IV antibiotics. 2. Continue pain control. 3. Discontinue IV vancomycin. Continue IV Zosyn. 4. Surgical management is pending of the foot. 5. Pain is well controlled. 6. Diabetes control. Job#: [id number] DC
[2017-09-16] MEDS: SODIUM CHLORIDE 0.9% 1000ML 1,000 ML IV SCH ×3 (07:33→23:33)
[2017-09-16] MEDS: FAMOTIDINE 20 MG TAB PO SCH ×2 (08:07→16:33)
[2017-09-16] MEDS: INSULIN REGULAR, HUMAN 100 UNIT/1 ML 3ML VIAL SQ SCH ×4 (08:07→20:50)
[2017-09-16] MEDS: HYDRALAZINE HCL 25 MG TAB PO SCH ×3 (08:08→20:50)
[2017-09-16] MEDS: SAXAGLIPTIN HCL 5 MG PO SCH (08:08)
[2017-09-16] MEDS: BENZONATATE 100 MG CAP PO SCH ×3 (08:08→20:50)
[2017-09-16] MEDS: NIFEDIPINE CR 30 MG TAB PO SCH ×2 (08:08→20:50)
[2017-09-16] MEDS: HYDROCHLOROTHIAZIDE 25 MG TAB PO SCH (08:08)
[2017-09-16] MEDS: INSULIN DETEMIR 100 UNIT/ML PEN SQ SCH (08:09)
[2017-09-16] MEDS: COLLAGENASE 5 GM TUBE TOP SCH (09:00)
--- NOTE | 2017-09-16 09:14 | Progress Note ---
DATE: September 16, 2017 SUBJECTIVE: Patient seen at bedside. Feeling somewhat better. Denies any history of fever, chills, nausea or vomiting. OBJECTIVE: Vitals: Afebrile. Vital signs stable. Ulceration to the 2nd toe left foot looking a little bit better. Positive necrosis, bone exposed. Pedal pulses are palpable. Decreased cellulitis. ASSESSMENT: Osteomyelitis with abscess with grade-4 ulcer and bone exposed. PLAN: Will continue IV antibiotics for a couple more days. The patient will be taken for surgical intervention on morning. Proposed surgery will be discussed with the patient tomorrow. Will continue IV antibiotics and local wound care for now. Job#: [id number]
[2017-09-16] MEDS: ENOXAPARIN SOD INJ 40 MG/0.4 ML SYR SC SCH (16:34)
[2017-09-16] MEDS: ATORVASTATIN 40 MG TAB PO SCH (20:50)
[2017-09-17] VITALS (8 sets, daily range): BP systolic 142–164; BP diastolic 66–96
[2017-09-17] MEDS: PIPER-TAZ 3.375 GM 50 ML IV SCH ×3 (00:34→17:10)
[2017-09-17 07:24] LABS: BASOPHILS # (AUTO) 0.1 (0.0-0.1); EOSINOPHILS # (AUTO) 0.4 (0.0-0.4); EOSINOPHILS % 6.6 % (0.0-6.0); HEMATOCRIT 29.8 % (38.2-49.6); HEMOGLOBIN 10.1 g/dL (14.0-18.0); LYMPHOCYTES # (AUTO) 1.5 (1.0-3.2); LYMPHOCYTES % 25.6 % (18.0-39.1); MEAN CORPUSCULAR HEMOGLOBIN 31.1 pg (28-32); MEAN CORPUSCULAR HGB CONC 33.9 g/dL (31-35); MEAN CORPUSCULAR VOLUME 91.7 fL (81-99); MONOCYTES # (AUTO) 0.5 (0.2-0.8); MONOCYTES % 8.8 % (4.4-11.3); NEUTROPHILS # (AUTO) 3.3 (2.1-6.9); NEUTROPHILS % 57.5 % (38.7-80.0); PLATELET COUNT 227 x10e3/uL (140-360); RED BLOOD COUNT 3.25 x10e6/uL (4.3-5.7); RED CELL DISTRIBUTION WIDTH 12.2 % (11.7-14.4)
--- NOTE | 2017-09-17 07:26 | Progress Note ---
DATE: September 17, 2017 TIME: 7 a.m. OVERNIGHT: No events. Pain controlled. REVIEW OF SYSTEMS: Denies any dizziness. PHYSICAL EXAMINATION VITAL SIGNS: Reviewed. GENERAL: A tired-appearing man resting in bed. HEENT: Anicteric. CARDIOVASCULAR: Normal S1 and S2. LUNGS: He has good chest expansion. ABDOMEN: Soft and nondistended. EXTREMITIES: He has a left foot with dressing in place. SKIN: Dry. PSYCHIATRIC: Normal affect. LABS: Reviewed. MEDICATIONS: Reviewed. ASSESSMENT: A 57-year-old man with: 1. Left foot 2nd digit osteomyelitis. 2. Chronic kidney disease, stage 3/diabetic nephropathy. 3. Diabetes mellitus, type 2: Hemoglobin A1c 6.3, LDL 32. 4. Hypertension. 5. Hyperlipidemia. 6. Diabetic foot ulcer, positive for Pseudomonas aeruginosa and Streptococcus viridans. PLAN 1. Continue IV Zosyn. 2. Surgical management pending today. 3. Pain well controlled. 4. Diabetes controlled. 5. Follow up thereafter surgery. Obtain labs this morning. Job#: [id number] [place]
--- NOTE | 2017-09-17 07:29 | Progress Note ---
DATE: September 17, 2017 SUBJECTIVE: Patient seen at bedside. Ready for surgical intervention. Denying any history of fever, chills, nausea, or vomiting. OBJECTIVE VITALS: Afebrile. Vital signs stable. EXTREMITIES: Has a necrotic toe and distal aspect. Swelling has gone down to the forefoot aspect of the left lower extremity. Pedal pulses are palpable, but diminished. ASSESSMENT: Osteomyelitis with pregangrenous changes with abscess of distal aspect, 2nd toe, left foot. PLAN: The patient will be taken for surgical intervention tomorrow. Surgery will consist of I and D of abscess, partial amputation or complete amputation of the 2nd toe, left with flap closure. Patient was given time to ask questions. All questions were answered. The patient understands. No guarantees or warranties were given. The patient will be kept n.p.o. after midnight. Job#: [id number] [place]
[2017-09-17] MEDS: SODIUM CHLORIDE 0.9% 1000ML 1,000 ML IV SCH ×2 (07:33→15:33)
[2017-09-17 07:44] LABS: CALCIUM 8.3 mg/dL (8.4-10.2); CREATININE, SERUM 1.56 mg/dL (0.72-1.25)
[2017-09-17] MEDS: INSULIN DETEMIR 100 UNIT/ML PEN SQ SCH (08:03)
[2017-09-17] MEDS: INSULIN REGULAR, HUMAN 100 UNIT/1 ML 3ML VIAL SQ SCH ×4 (08:03→21:20)
[2017-09-17] MEDS: FAMOTIDINE 20 MG TAB PO SCH ×2 (08:04→17:10)
[2017-09-17] MEDS: HYDROCHLOROTHIAZIDE 25 MG TAB PO SCH (08:04)
[2017-09-17] MEDS: HYDRALAZINE HCL 25 MG TAB PO SCH ×3 (08:04→21:43)
[2017-09-17] MEDS: SAXAGLIPTIN HCL 5 MG PO SCH (08:04)
[2017-09-17] MEDS: NIFEDIPINE CR 30 MG TAB PO SCH ×2 (08:05→21:43)
[2017-09-17] MEDS: BENZONATATE 100 MG CAP PO SCH ×3 (09:00→21:56)
[2017-09-17] MEDS: COLLAGENASE 5 GM TUBE TOP SCH (11:25)
[2017-09-17] MEDS: ENOXAPARIN SOD INJ 40 MG/0.4 ML SYR SC SCH (17:10)
[2017-09-17] MEDS: ATORVASTATIN 40 MG TAB PO SCH (21:43)
[2017-09-18] VITALS (8 sets, daily range): BP systolic 142–187; BP diastolic 72–92
[2017-09-18] MEDS: PIPER-TAZ 3.375 GM 50 ML IV SCH ×3 (00:27→17:05)
[2017-09-18] MEDS: SODIUM CHLORIDE 0.9% 1000ML 1,000 ML IV SCH ×4 (00:27→23:33)
[2017-09-18] MEDS ORDERED: BETAMETHASONE DISODIUM PHOS 6 MG/ML VIAL ONE (06:17)
[2017-09-18] MEDS ORDERED: BUPIVACAINE HCL 0.5% INJ 30 ML VIAL INJ ONE (06:18)
[2017-09-18] MEDS ORDERED: BACITRACIN 50,000 UNIT VIAL ONE (06:18)
[2017-09-18] MEDS ORDERED: MUPIROCIN 2% OINT 22 GM TUBE ONE (07:20)
[2017-09-18] MEDS: INSULIN REGULAR, HUMAN 100 UNIT/1 ML 3ML VIAL SQ SCH ×4 (07:30→20:45)
--- NOTE | 2017-09-18 08:36 | Operative Report ---
DATE OF PROCEDURE: September 18, 2017 PREOPERATIVE DIAGNOSES 1. Abscess, left foot. 2. Osteomyelitis, 2nd toe, left foot. 3. Grade-4 ulcer, left foot. POSTOPERATIVE DIAGNOSES 1. Abscess, left foot. 2. Osteomyelitis, 2nd toe, left foot. 3. Grade-4 ulcer, left foot. PROCEDURES 1. Incision and drainage of abscess, deep down to bone, 2nd toe, left foot. 2. Partial amputation, 2nd toe, left foot, with debridement of ulcer. 3. Rotational flap closure, left foot. 4. Intraoperative use of fluoroscopy. ANESTHESIA: General. HEMOSTASIS: Pneumatic thigh tourniquet at 350 mmHg. PROCEDURE IN DETAIL: The patient was taken into the operating room and placed on the operating room table in the supine position. Following induction of general anesthesia by the anesthesiologist, Webril wrap was placed on the patient's left thigh followed by application of a left thigh tourniquet. The left lower extremity was then prepped and draped in the usual aseptic manner. The following procedures were then performed: Procedure #1: I and D of abscess, left foot. Attention was directed to the distal aspect of the 2nd toe, left foot, where a linear incision was performed from dorsal to plantar down to bone. A deep pocket abscess was encountered. It was cultured for aerobic and anaerobic growth. Necrotic tissue was then noted to be going down to the flexor tendon. At this point, procedure #2, partial amputation of the toe was performed with extensive debridement down to good, viable tissue. The toe was then disarticulated at the proximal interphalangeal joint. The distal aspect of the toe was then sent for pathological analysis. More necrosis was noted. Sharp debridement was carried down to bone once again. At this point, the thigh tourniquet was then released. Continued debridement of the necrotic tissue was performed until good, viable, bleeding tissue was achieved. Once that was done, the areas were then copiously flushed with sterile antibiotic solution and suctioned. Procedure #3: Intraoperative use of fluoroscopy was then used to make sure no gas in the tissue was noted. Procedure #4: Rotational flap closure. The incision was then lengthened both dorsal medial and plantar laterally to allow for plantar flap for closure with minimal skin tension. The flap was then reapproximated utilizing 2-0 Vicryl and 4-0 nylon for the subcutaneous tissue and skin respectively. Approximately 10 mL of 0.5% plain Marcaine was then used to achieve local anesthesia of the above-mentioned surgical areas. Sterile dressing was applied. The patient was then transferred from the OR to the recovery room with vital signs stable and neurovascular status intact. No intraoperative complications were encountered. Blood loss from the surgery was minimal. The patient is to remain nonweightbearing and will receive 1 more day of antibiotics. He may be discharged tomorrow if okay with Dr. Selwyn Rizvi. The patient understands no warranties or guarantees were given. May need further surgery if not responsive. Job#: [id number]
[2017-09-18] MEDS: COLLAGENASE 5 GM TUBE TOP SCH (09:00)
[2017-09-18] MEDS: SAXAGLIPTIN HCL 5 MG PO SCH (09:00)
[2017-09-18] MEDS: FAMOTIDINE 20 MG TAB PO SCH ×2 (09:06→17:05)
[2017-09-18] MEDS: HYDRALAZINE HCL 25 MG TAB PO SCH ×3 (09:07→20:47)
[2017-09-18] MEDS: BENZONATATE 100 MG CAP PO SCH ×3 (09:07→20:48)
[2017-09-18] MEDS: HYDROCHLOROTHIAZIDE 25 MG TAB PO SCH (09:07)
[2017-09-18] MEDS: NIFEDIPINE CR 30 MG TAB PO SCH ×2 (09:07→20:48)
[2017-09-18] MEDS: INSULIN DETEMIR 100 UNIT/ML PEN SQ SCH (09:08)
[2017-09-18] MEDS ORDERED: INSULIN REGULAR, HUMAN 100 UNIT/1 ML 3ML VIAL SQ ONE (13:00)
[2017-09-18] MEDS: ENOXAPARIN SOD INJ 40 MG/0.4 ML SYR SC SCH (17:05)
[2017-09-18] MEDS ORDERED: LIDOCAINE HCL 2% LOCAL INJ 5 ML SDV VIAL INJ ONE (17:33)
[2017-09-18] MEDS ORDERED: ONDANSETRON HCL INJ 2 MG/ML VIAL ONE (17:33)
[2017-09-18] MEDS ORDERED: PROPOFOL IV EMULSION 10 MG/ML 20 ML VIAL ONE (17:33)
[2017-09-18] MEDS ORDERED: DEXAMETHASONE SOD PHOS INJ 4 MG/ML VIAL ONE (17:33)
[2017-09-18] MEDS ORDERED: SEVOFLURANE INHAL SOLN 250 ML PEN BTL ONE (17:33)
[2017-09-18] MEDS ORDERED: MIDAZOLAM HCL 2 MG/2 ML VIAL ONE (17:44)
[2017-09-18] MEDS ORDERED: FENTANYL CITRATE/PF 100MCG/2 ML INJ ONE (17:44)
[2017-09-18] MEDS: ATORVASTATIN 40 MG TAB PO SCH (20:47)
[2017-09-18] MEDS ORDERED: INSULIN DETEMIR 100 UNIT/ML PEN SQ SCH (21:00)
[2017-09-18] MEDS: ACETAMINOPHEN/CODEINE 300MG - 30MG TAB PO PRN (22:03)
[2017-09-19 00:19] VITALS: BP 175/86
[2017-09-19 05:58] VITALS: BP 150/83
[2017-09-19] MEDS ORDERED: LABETALOL HCL 100 MG TAB PO SCH (07:30)
[2017-09-19] MEDS: INSULIN REGULAR, HUMAN 100 UNIT/1 ML 3ML VIAL SQ SCH ×2 (07:45→11:35)
[2017-09-19 08:00] VITALS: BP 183/86
[2017-09-19] MEDS: FAMOTIDINE 20 MG TAB PO SCH (08:16)
[2017-09-19] MEDS: PIPER-TAZ 3.375 GM 50 ML IV SCH ×2 (08:30)
[2017-09-19] MEDS: BENZONATATE 100 MG CAP PO SCH (08:31)
[2017-09-19] MEDS: INSULIN DETEMIR 100 UNIT/ML PEN SQ SCH (08:31)
[2017-09-19] MEDS: NIFEDIPINE CR 30 MG TAB PO SCH (08:31)
[2017-09-19] MEDS: HYDROCHLOROTHIAZIDE 25 MG TAB PO SCH (08:31)
[2017-09-19] MEDS: HYDRALAZINE HCL 25 MG TAB PO SCH (08:31)
--- NOTE | 2017-09-19 08:45 | Progress Note ---
DATE: September 19, 2017 SUBJECTIVE: Patient is doing significantly better. Decreased pain to the left lower extremity. OBJECTIVE VITAL SIGNS: Afebrile. Vital signs stable. EXTREMITIES: Dressing dry and intact. Decreased swelling to the left lower extremity. ASSESSMENT: Status post incision and drainage of left foot, partial resection of 2nd toe, left foot with rotational flap closure. PLAN: Okay for the patient to go home today. Patient has Augmentin 875 mg at home. He needs to take twice a day until seen in the office next week. Walk with the aid of the surgical shoe. Minimal walking allowed. Job#: [id number] TEGAN
--- NOTE | 2017-09-19 08:59 | Progress Note ---
DATE: September 18, 2017 TIME: 6:40 a.m. OVERNIGHT: Had debridement. REVIEW OF SYSTEMS: Denies any dizziness. PHYSICAL EXAMINATION VITAL SIGNS: Reviewed. GENERAL: A tired-appearing man resting in bed. HEENT: Anicteric. CARDIOVASCULAR: Normal S1 and S2. LUNGS: Moderate breath sounds. ABDOMEN: Soft, nontender and nondistended. EXTREMITIES: No edema. His left foot has a dressing in place. SKIN: Dry. PSYCHIATRIC: Flat affect. LABS: Reviewed. MEDICATIONS: Reviewed. ASSESSMENT: A 57-year-old man with: 1. Left foot 2nd digit osteomyelitis. 2. Chronic kidney disease, stage 3/diabetic nephropathy. 3. Diabetes mellitus, type 2: Hemoglobin A1c 6.3, LDL 32. 4. Hypertension. 5. Hyperlipidemia. 6. Diabetic foot ulcer: Positive for Pseudomonas aeruginosa/Streptococcus viridans. PLAN 1. Continue IV antibiotics. 2. Surgical management. 3. Pain control. 4. Diabetes, controlled. Job#: [id number] [place]
[2017-09-19] MEDS: SAXAGLIPTIN HCL 5 MG PO SCH (09:00)
--- NOTE | 2017-09-19 09:09 | Progress Note ---
DATE: September 19, 2017 TIME: 8:25 a.m. OVERNIGHT: Pain control. REVIEW OF SYSTEMS: Denies any dizziness. PHYSICAL EXAMINATION VITAL SIGNS: Reviewed. GENERAL: A tired-appearing man resting in bed. HEENT: Anicteric. CARDIOVASCULAR: Normal S1 and S2. LUNGS: Moderate breath sounds. ABDOMEN: Soft, nontender, and nondistended. EXTREMITIES: He has left foot with dressing in place. SKIN: Dry. PSYCHIATRIC: Flat affect. LABS: Reviewed. MEDICATIONS: Reviewed. ASSESSMENT: A 57-year-old man with 1. Left foot 2nd digit osteomyelitis. 2. Chronic kidney disease, stage 3/diabetic nephropathy. 3. Diabetes mellitus type 2: Hemoglobin A1c 6.3, low-density lipoprotein 32. 4. Hypertension. 5. Hyperlipidemia. 6. Diabetic foot ulcer: Positive for Pseudomonas aeruginosa/Streptococcus viridans. PLAN 1. Continue IV antibiotics. 2. Continue local wound care. 3. Continue pain control. 4. Control diabetes control. 5. Add labetalol for better blood pressure control. 6. Monitor followup blood count. 7. medications. Job#: [id number]
[2017-09-19] MEDS: COLLAGENASE 5 GM TUBE TOP SCH (09:56)
[2017-09-19 12:00] VITALS: BP 179/79
[2017-09-19] MEDS ORDERED: AUGMENTIN 875-1 EACH PO (15:53)
[2017-09-19 16:00] VITALS: BP 161/77
== END 2017-09-19 16:13 | disposition home or self-care (01) | DRG 617 ==
LOC: ER 11:13 → ERHOLD 15:53 → MED/SURG2 16:36
PROVIDERS: ADMIT Internal Medicine; ATTEND Internal Medicine
PROC: 0JXR0ZZ Transfer Left Foot Subcutaneous Tissue and Fascia, Open Approach (ICD-10-PCS; 2017-09-18)
PROC: 0Y9N0ZZ Drainage of Left Foot, Open Approach (ICD-10-PCS; 2017-09-18)
PROC: 0Y6S0Z2 Detachment at Left 2nd Toe, Mid, Open Approach (ICD-10-PCS; principal; 2017-09-18 06:53)
DX: E11.69 Type 2 diabetes mellitus with other specified complication (principal); M86.172 Other acute osteomyelitis, left ankle and foot; E11.21 Type 2 diabetes mellitus with diabetic nephropathy; E11.40 Type 2 diabetes mellitus with diabetic neuropathy, unspecified; L02.612 Cutaneous abscess of left foot; E11.621 Type 2 diabetes mellitus with foot ulcer; L97.529 Non-pressure chronic ulcer of other part of left foot with unspecified severity; E11.22 Type 2 diabetes mellitus with diabetic chronic kidney disease; I12.9 Hypertensive chronic kidney disease with stage 1 through stage 4 chronic kidney disease, or unspecified chronic kidney disease; N18.3 Chronic kidney disease, stage 3 (moderate); Z89.412 Acquired absence of left great toe; E78.5 Hyperlipidemia, unspecified; Z79.4 Long term (current) use of insulin; B96.5 Pseudomonas (aeruginosa) (mallei) (pseudomallei) as the cause of diseases classified elsewhere; B95.4 Other streptococcus as the cause of diseases classified elsewhere; L03.032 Cellulitis of left toe
CPT/HCPCS: 36415; 80048; 80053; 80061; 80202; 82550; 82553; 82948; 83036; 84484; 85025; 85610; 85651; 85730; 87040; 87071; 87075; 87186; 87205; 88305; 88311; 93005; 96372; 97139; 99284; J0720; J1100; J1650; J2001; J2250; J2405; J2543; J3370; J7030

== ENCOUNTER 2018-08-30 12:58 | Emergency (ER) | payer BC ==
[~2018-08-30] VITALS: Ht 177.8 cm; Wt 109.8 kg
[~2018-08-30 12:58] MED LIST changes: +AUGMENTIN 875-1 EACH PO
[2018-08-30 14:06] LABS: BASOPHILS # (AUTO) 0.1 (0.0-0.1); EOSINOPHILS # (AUTO) 0.5 (0.0-0.4); EOSINOPHILS % 7.5 % (0.0-6.0); HEMATOCRIT 37.7 % (38.2-49.6); HEMOGLOBIN 12.1 g/dL (14.0-18.0); LYMPHOCYTES % 14.4 % (18.0-39.1); MEAN CORPUSCULAR HEMOGLOBIN 30.5 pg (28-32); MEAN CORPUSCULAR HGB CONC 32.1 g/dL (31-35); MONOCYTES # (AUTO) 0.6 (0.2-0.8); MONOCYTES % 9.2 % (4.4-11.3); NEUTROPHILS # (AUTO) 4.7 (2.1-6.9); NEUTROPHILS % 67.5 % (38.7-80.0); PLATELET COUNT 209 x10e3/uL (140-360); RED BLOOD COUNT 3.97 x10e6/uL (4.3-5.7); RED CELL DISTRIBUTION WIDTH 12.6 % (11.7-14.4)
[2018-08-30 14:28] LABS: ALBUMIN 3.1 g/dL (3.5-5.0); ALBUMIN/GLOBULIN RATIO 0.9 (0.8-2.0); ANION GAP 9.7 mmol/L (8-16); CALCIUM 8.4 mg/dL (8.4-10.2); CREATININE, SERUM 1.91 mg/dL (0.72-1.25); POTASSIUM 4.7 mmol/L (3.5-5.1)
--- NOTE | 2018-08-30 15:40 | Diagnostic Imaging Report ---
Exam: right foot 3 views History: pain Comparison: None. Findings: No fracture or malalignment. Joint spaces preserved. No abnormal soft tissue calcification or soft tissue defect. Vascular calcifications. Impression: No acute osseous abnormality. Soft tissue swelling. No osteomyelitis. Signed by: Dr. Yeyo Gordon M.D. on 08/30/2018 3:37 PM
--- NOTE | 2018-08-30 16:04 | NUR ---
PATIENT RE-EVALUATED IN TRIAGE PER MARYANNE STANFORD N.P. PATIENT BP 205/92. PATIENT STATES, HE DID NOT TAKE HIS AFTERNOON DOSE OF BLOOD PRESSURE MEDICATION. PATIENT DENIES ANY CHEST PAIN, SHORTNESS OF BREATH, BLURRY VISION OR HEADACHE.
--- NOTE | 2018-08-30 16:05 | NUR ---
PATIENTS DAUGHTER IS WITH HIM. THEY ARE GOING DIRECTLY HOME TO TAKE BLOOD PRESSURE MEDICATION. THEY VERBALIZED UNDERSTANDING AND IMPORTANCE OF ELEVATED BLOOD PRESSURE
== END 2018-08-30 16:14 | disposition home or self-care (01) ==
LOC: ER 12:58
DX: S90.421A Blister (nonthermal), right great toe, initial encounter (principal); I10 Essential (primary) hypertension; E11.9 Type 2 diabetes mellitus without complications; E78.5 Hyperlipidemia, unspecified
CPT/HCPCS: 36415; 80053; 85025; 99283

== ENCOUNTER 2019-02-10 18:50 | Inpatient (IN) | payer BC ==
[~2019-02-10] VITALS: Ht 167.6 cm; Wt 116.1 kg
[2019-02-10] MEDS ORDERED: VANCOMYCIN 1GM/NS 250 ML 250 ML IV SCH (19:30)
[2019-02-10] MEDS ORDERED: PIPER-TAZ 3.375 GM 50 ML IV SCH (19:30)
[2019-02-10] MEDS ORDERED: ACETAMINOPHEN 325 MG TAB PO ONE (19:30)
[2019-02-10 19:59] LABS: BASOPHILS % 0.3 % (0.0-1.0); EOSINOPHILS # (AUTO) 0.2 (0.0-0.4); EOSINOPHILS % 1.7 % (0.0-6.0); HEMATOCRIT 33.5 % (38.2-49.6); HEMOGLOBIN 11.2 g/dL (14.0-18.0); LYMPHOCYTES % 8.2 % (18.0-39.1); MEAN CORPUSCULAR HEMOGLOBIN 30.9 pg (28-32); MEAN CORPUSCULAR HGB CONC 33.4 g/dL (31-35); MEAN CORPUSCULAR VOLUME 92.5 fL (81-99); MONOCYTES # (AUTO) 1.2 (0.2-0.8); MONOCYTES % 9.4 % (4.4-11.3); NEUTROPHILS # (AUTO) 10.1 (2.1-6.9); PLATELET COUNT 203 x10e3/uL (140-360); RED BLOOD COUNT 3.62 x10e6/uL (4.3-5.7); RED CELL DISTRIBUTION WIDTH 12.1 % (11.7-14.4)
[2019-02-10 20:14] LABS: ALBUMIN 2.7 g/dL (3.5-5.0); ALBUMIN/GLOBULIN RATIO 0.6 (0.8-2.0); ANION GAP 15.6 mmol/L (8-16); CALCIUM 8.7 mg/dL (8.4-10.2); CREATININE, SERUM 2.47 mg/dL (0.72-1.25); POTASSIUM 3.6 mmol/L (3.5-5.1)
[2019-02-10] MEDS ORDERED: DEXTROSE 50% SYRINGE 50 ML IV ONE (20:30)
[2019-02-10] MEDS ORDERED: ACETAMINOPHEN 325 MG TAB PO PRN (20:45)
[2019-02-10] MEDS ORDERED: MORPHINE SULFATE 2 MG/ML SYR 1ML IV PRN (20:45)
[2019-02-10] MEDS ORDERED: ONDANSETRON HCL INJ 2MG/ML 2ML 2 MG/ML VIAL IV PRN (20:45)
[2019-02-10] MEDS: SODIUM CHLORIDE 0.9% 1000ML 1,000 ML IV SCH (20:45)
[2019-02-10] MEDS ORDERED: DEXTROSE 50% SYRINGE 50 ML IV PRN (20:45)
[2019-02-10] MEDS: PIPERACILLIN/TAZO 2.25 GM 50 ML IV SCH (20:55)
[2019-02-10] MEDS ORDERED: MORPHINE SULFATE INJ 4 MG/ML INJ 1ML IV PRN (21:00)
[2019-02-10] MEDS: INSULIN REGULAR, HUMAN 100 UNIT/1 ML 3ML VIAL SQ SCH (21:53)
[2019-02-10] MEDS: VANCOMYCIN 500MG/NS 0.9% 100ML 100 ML IV SCH (22:24)
[2019-02-10 22:30] VITALS: BP 188/88
--- NOTE | 2019-02-10 22:30 | NUR ---
patient is a new admit that arrived via stretcher. patient is awake and talking. patient has been assisted into the bed. bed is in the lowest position and call small is within reach. will continue to monitor patient.
[2019-02-11] VITALS (8 sets, daily range): BP systolic 156–188; BP diastolic 63–88
[2019-02-11] MEDS ORDERED: ASPIRIN81 MG PO (00:51)
[2019-02-11] MEDS ORDERED: JANUVIA100 MG PO (00:51)
[2019-02-11] MEDS ORDERED: METOPROLOL TART50 MG PO (00:51)
[2019-02-11] MEDS ORDERED: PIOGLITAZONE HC45 MG PO (00:51)
[2019-02-11] MEDS ORDERED: BENAZEPRIL HCL10 MG PO (00:51)
[2019-02-11] MEDS ORDERED: GLIPIZIDE ER5 MG PO (00:51)
--- NOTE | 2019-02-11 00:57 | NUR ---
patients blood pressure has been re-assessed and found to be 153/67. patient is resting comfortably in bed. no signs of distress noted. will continue to monitor patient.
--- NOTE | 2019-02-11 04:15 | NUR ---
patients blood pressure has been reassessed and found to be 158/67. Patient is resting comfortably in bed. bed is in lowest position and call small is within reach.
[2019-02-11] MEDS: SODIUM CHLORIDE 0.9% 1000ML 1,000 ML IV SCH (04:45)
[2019-02-11] MEDS: PIPERACILLIN/TAZO 2.25 GM 50 ML IV SCH ×3 (05:15→21:08)
[2019-02-11 05:16] LABS: BASOPHILS % 0.4 % (0.0-1.0); EOSINOPHILS # (AUTO) 0.3 (0.0-0.4); EOSINOPHILS % 3.1 % (0.0-6.0); HEMATOCRIT 31.8 % (38.2-49.6); HEMOGLOBIN 10.2 g/dL (14.0-18.0); LYMPHOCYTES # (AUTO) 0.9 (1.0-3.2); LYMPHOCYTES % 8.4 % (18.0-39.1); MEAN CORPUSCULAR HEMOGLOBIN 30.4 pg (28-32); MEAN CORPUSCULAR HGB CONC 32.1 g/dL (31-35); MEAN CORPUSCULAR VOLUME 94.6 fL (81-99); MONOCYTES # (AUTO) 1.2 (0.2-0.8); MONOCYTES % 11.2 % (4.4-11.3); NEUTROPHILS # (AUTO) 8.3 (2.1-6.9); NEUTROPHILS % 76.6 % (38.7-80.0); PLATELET COUNT 183 x10e3/uL (140-360); RED BLOOD COUNT 3.36 x10e6/uL (4.3-5.7); RED CELL DISTRIBUTION WIDTH 12.1 % (11.7-14.4)
[2019-02-11 05:41] LABS: ALBUMIN 2.4 g/dL (3.5-5.0); ALBUMIN/GLOBULIN RATIO 0.6 (0.8-2.0); ANION GAP 13.6 mmol/L (8-16); CALCIUM 8.4 mg/dL (8.4-10.2); CREATININE, SERUM 2.5 mg/dL (0.72-1.25); POTASSIUM 3.6 mmol/L (3.5-5.1)
--- NOTE | 2019-02-11 06:46 | NUR ---
report given to day nurse. patient is resting comfortably in bed. bed is in lowest position and call small is within reach.
[2019-02-11] MEDS: INSULIN REGULAR, HUMAN 100 UNIT/1 ML 3ML VIAL SQ SCH ×4 (07:30→19:59)
[2019-02-11] MEDS: VANCOMYCIN 500MG/NS 0.9% 100ML 100 ML IV SCH ×2 (10:04→19:59)
[2019-02-11] MEDS: BENAZEPRIL HCL 10 MG TAB PO SCH (10:05)
[2019-02-11] MEDS: AMLODIPINE BESYLATE 10 MG TAB PO SCH (10:05)
[2019-02-11] MEDS: MUPIROCIN 2% OINT 22 GM TUBE TOP SCH ×2 (11:19→18:09)
[2019-02-11] MEDS ORDERED: SODIUM CHLORIDE 0.9% 250ML 250 ML ONE (14:24)
--- NOTE | 2019-02-11 15:51 | Consultation ---
DATE OF CONSULTATION: 02/11/2019 CONSULTING PHYSICIAN: Emir Tobar DPM. REASON FOR CONSULTATION: Cellulitis of the left lower extremity and the patient being an insulin-dependent diabetic. HISTORY OF PRESENT ILLNESS: This is a pleasant 59-year-old male with a history of insulin-dependent diabetes, hypertension, and hypercholesterolemia, who relates he fell approximately a month ago on his left knee. A week ago, started having some cellulitis and had some chills and fever, but since he has been in the hospital and getting IV antibiotics, he is feeling much better. Denying history of fever, chills, nausea, or vomiting. PAST MEDICAL HISTORY: As described above. PAST SURGICAL HISTORY: Remarkable for multiple foot surgeries including partial amputation of the 2nd and complete amputation of the left great toe. ALLERGIES: THE PATIENT DENIES. 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 Drinks socially. Denies any smoking or recreational drug use. Lives with his . FAMILY HISTORY: Noncontributory. CURRENT MEDICATIONS: Note listed in the chart including IV Zosyn and vancomycin. REVIEW OF SYSTEMS: CARDIAC: Denies any palpitations or arrhythmias. RESPIRATORY: Denies any shortness of breath or productive cough. GASTROINTESTINAL: Denies any diarrhea or constipation. GENITOURINARY: Denies any problems voiding or hematuria. PHYSICAL EXAMINATION: VITAL SIGNS: Afebrile, pulse rate 64, respiration 19, blood pressure 160/63, and O2 saturation 96%. Podiatric physical examination reveals the following: VASCULATURE: Pedal pulses of both the DP and PT are palpable, but diminished. Skin temperature warm to touch. CFT to all toes less than 5 seconds. NEUROLOGICAL: Reveals complete loss of protective sensation when utilizing [place]-Tressa 5.07 monofilament wire. MUSCULOSKELETAL: Shows muscle mass to be asymmetrical. Some swelling noted to the left lower extremity when compared to the right with some open grade 1 and 2 ulcerations to multiple areas bilaterally. Some swelling to the left knee noted. There are no open lesions noted to the left lower extremity or right lower extremity, plantarly or dorsally. LABORATORY DATA: Labs show white blood cell count dropping from 12.6 to 10.7, hemoglobin 10.2 with a platelet count of 183. ASSESSMENT: Multiple grade 1 ulcerations, cellulitis, edema. PLAN: We will continue IV antibiotics. Start Bactroban ointment to the open lesions to both lower extremities. We will continue to follow. ANTHONY Ricks/ANDRES /[id number]
--- NOTE | 2019-02-11 15:53 | NUR ---
59 YO male diabetic patient presents with redness and swelling to [facility] lower extremity small .8cm x.4cm scabbed over eschar area to mid lower leg no other wounds noted upon skin assessment [place] doppler done shows no DVT Blood culture pending Dr Tobar has assessed patient and orders for care are in Pt chart Nursing to continue [facility] care and treatment per orders of Dr Tobar Addendum: 02/11/19 at 1604 by Arnold Florian RN Amended: Links added.
[2019-02-11] MEDS: HYDROCODONE/APAP 5MG-325MG TAB PO PRN (18:15)
--- NOTE | 2019-02-11 19:00 | NUR ---
received report from day nurse. patient is resting comfortably in bed. bed is in lowest position and call small is within reach. will continue to monitor patient.
[2019-02-12] VITALS (8 sets, daily range): BP systolic 133–173; BP diastolic 56–85
--- NOTE | 2019-02-12 00:45 | Consultation ---
DATE OF CONSULTATION: Pulmonary Critical Care consultation CHIEF COMPLAINT: Cellulitis of the lower extremity and diabetes. HISTORY OF PRESENT ILLNESS: The patient is a 59-year-old man. He has a history of insulin-dependent diabetes and renal insufficiency. He was previously hospitalized for osteomyelitis of the left toe. He required an amputation of the great toe followed by a partial amputation of the second digit later this year. He now returns with swelling and tenderness in the left leg for the past four to five days. He does not recall any fevers. PAST SURGICAL HISTORY: 1. Status post amputation of the great toe on the left foot. 2. Status post partial amputation of the second digit on the left foot. 3. Status post tonsillectomy. 4. Status post left knee surgery. SOCIAL HISTORY: The patient is not a smoker. He drinks one to two beers a day. PAST MEDICAL HISTORY: 1. Diabetes and requiring insulin. 2. Diabetic nephropathy with chronic renal failure stage 3. 3. Hypertension. FAMILY HISTORY: History of cancer in the family. ALLERGIES: NO KNOWN DRUG ALLERGIES. REVIEW OF SYSTEMS: The patient is afebrile. He has no headache. He has no neck pain. He is not complaining of any chest pain. He has no difficulty breathing. He is not complaining of abdominal pain. He has no nausea or vomiting. He does have swelling and erythema of the left lower extremity. He does not complain of any focal neurological problems. PHYSICAL EXAMINATION: VITAL SIGNS: The patient is afebrile. His T-max was 99.5 earlier yesterday. His blood pressure is 166/78 and his pulse is 74. Respiratory rate is 20. HEENT EXAMINATION: Shows no facial swelling or erythema. CARDIAC EXAM: Reveals a regular rate and rhythm with normal S1, S2. There are no murmurs or rubs. LUNGS: Auscultation of lungs reveals clear breath sounds bilaterally. There is no wheezing. ABDOMEN: Soft, nontender. There is no rebound or guarding. EXTREMITIES: Examination of the extremities shows erythema and tenderness in the left lower extremity. He had prior amputation of the great toe on the left foot. He has good peripheral pulses. LABORATORY DATA: White blood cell count is 10.7 and hemoglobin is 10.2. The platelet count 183. The BUN to creatinine ratio is 45 to 2.5 and the other electrolytes within normal limits. Albumin is 2.4. PT and INR within normal limits. RADIOGRAPHIC DATA: Venous duplex shows no deep vein thrombosis. IMPRESSION: 1. Cellulitis of the left lower extremity with sepsis, present on admission. 2. Chronic renal insufficiency, stage 4. 3. Diabetes, requiring insulin. 4. Hypertension. PLAN: 1. Continue antibiotics. 2. Monitor blood sugar and give insulin as needed. 3. Antihypertensives. 4. Podiatry consult. 5. Review prior arterial studies of the lower extremity. Kodi Souza MD [facility]/MODL /[id number]
[2019-02-12 03:31] LABS: BASOPHILS # (AUTO) 0.1 (0.0-0.1); BASOPHILS % 0.6 % (0.0-1.0); EOSINOPHILS # (AUTO) 0.5 (0.0-0.4); HEMATOCRIT 33.9 % (38.2-49.6); LYMPHOCYTES # (AUTO) 1.3 (1.0-3.2); LYMPHOCYTES % 14.1 % (18.0-39.1); MEAN CORPUSCULAR HEMOGLOBIN 30.6 pg (28-32); MEAN CORPUSCULAR HGB CONC 32.4 g/dL (31-35); MEAN CORPUSCULAR VOLUME 94.4 fL (81-99); MONOCYTES # (AUTO) 0.9 (0.2-0.8); MONOCYTES % 9.5 % (4.4-11.3); NEUTROPHILS # (AUTO) 6.5 (2.1-6.9); NEUTROPHILS % 70.4 % (38.7-80.0); PLATELET COUNT 212 x10e3/uL (140-360); RED BLOOD COUNT 3.59 x10e6/uL (4.3-5.7); RED CELL DISTRIBUTION WIDTH 12.2 % (11.7-14.4)
[2019-02-12 03:48] LABS: ANION GAP 14.7 mmol/L (8-16); CALCIUM 8.7 mg/dL (8.4-10.2); CHOL/HDL RATIO 2.8 (3.9-4.7); CREATININE, SERUM 2.38 mg/dL (0.72-1.25); POTASSIUM 3.7 mmol/L (3.5-5.1)
[2019-02-12 03:58] LABS: B-TYPE NATRIURETIC PEPTIDE2 152.2 pg/mL (0-100)
[2019-02-12] MEDS: HYDRALAZINE HCL 20 MG/ML VIAL IV PRN (04:00)
[2019-02-12 04:09] LABS: FREE T4 (FREE THYROXINE) 0.95 ng/dL (0.8-1.8); THYROID STIMULATING HORMONE 4.789 uIU/mL (0.350-4.940)
[2019-02-12] MEDS: PIPERACILLIN/TAZO 2.25 GM 50 ML IV SCH ×3 (05:12→21:41)
[2019-02-12] MEDS ORDERED: FUROSEMIDE INJ 10 MG/ML 2 ML VIAL IV ONE (06:00)
--- NOTE | 2019-02-12 06:50 | NUR ---
report given to day nurse. patient is resting comfortably in bed. bed is in lowest position and call light is within reach.
[2019-02-12] MEDS: INSULIN REGULAR, HUMAN 100 UNIT/1 ML 3ML VIAL SQ SCH ×4 (07:30→21:30)
[2019-02-12] MEDS: VANCOMYCIN 500MG/NS 0.9% 100ML 100 ML IV SCH ×2 (09:17→21:41)
[2019-02-12] MEDS: MUPIROCIN 2% OINT 22 GM TUBE TOP SCH ×2 (09:17→16:44)
[2019-02-12] MEDS: METOPROLOL TARTRATE 50 MG TAB PO SCH (09:17)
[2019-02-12] MEDS: BENAZEPRIL HCL 10 MG TAB PO SCH (09:17)
[2019-02-12] MEDS: HYDROCHLOROTHIAZIDE 25 MG TAB PO SCH (09:17)
[2019-02-12] MEDS: AMLODIPINE BESYLATE 10 MG TAB PO SCH (09:18)
--- NOTE | 2019-02-12 13:12 | Progress Note ---
DATE: 02/12/2019 SUBJECTIVE: The patient at bedside, doing somewhat better. Still very swollen and hot left lower extremity from the knee distally. He is denying any history of fever, chills, nausea, or vomiting. OBJECTIVE: VITAL SIGNS: Afebrile, pulse rate 67, respiration 19, blood pressure 152/80, and O2 saturation 96%. EXTREMITIES: Still some edema and cellulitis to the left foot with multiple grade 1 and 2 lesions anterior aspect of the left leg, less than 1.5 cm in diameter with very swollen left knee. LABORATORY DATA: Labs show white blood cell count of 9.2, dropping from a peak of 12.6. ASSESSMENT: Cellulitis, grade 2 ulcerations, diabetic neuropathy. PLAN: We will continue local wound care with Bactroban ointment. Continue Zosyn and vancomycin. We will continue to follow. The patient understands this may take a week to a couple weeks to resolve with IV antibiotics. ANTHONY Ricks/ANDRES /[id number]
[2019-02-12] MEDS: HYDROCODONE/APAP 5MG-325MG TAB PO PRN (17:56)
[2019-02-13] VITALS (8 sets, daily range): BP systolic 150–188; BP diastolic 76–89
[2019-02-13 03:46] LABS: BASOPHILS # (AUTO) 0.1 (0.0-0.1); BASOPHILS % 0.6 % (0.0-1.0); EOSINOPHILS # (AUTO) 0.4 (0.0-0.4); EOSINOPHILS % 5.2 % (0.0-6.0); HEMATOCRIT 31.9 % (38.2-49.6); HEMOGLOBIN 10.4 g/dL (14.0-18.0); LYMPHOCYTES # (AUTO) 1.2 (1.0-3.2); LYMPHOCYTES % 15.2 % (18.0-39.1); MEAN CORPUSCULAR HGB CONC 32.6 g/dL (31-35); MEAN CORPUSCULAR VOLUME 94.9 fL (81-99); MONOCYTES # (AUTO) 0.7 (0.2-0.8); MONOCYTES % 9.1 % (4.4-11.3); NEUTROPHILS # (AUTO) 5.6 (2.1-6.9); NEUTROPHILS % 69.3 % (38.7-80.0); PLATELET COUNT 230 x10e3/uL (140-360); RED BLOOD COUNT 3.36 x10e6/uL (4.3-5.7); RED CELL DISTRIBUTION WIDTH 12.2 % (11.7-14.4)
[2019-02-13 04:03] LABS: ANION GAP 14.5 mmol/L (8-16); CALCIUM 8.4 mg/dL (8.4-10.2); CREATININE, SERUM 2.34 mg/dL (0.72-1.25); POTASSIUM 4.5 mmol/L (3.5-5.1)
[2019-02-13] MEDS: PIPERACILLIN/TAZO 2.25 GM 50 ML IV SCH ×3 (05:00→22:14)
[2019-02-13] MEDS: HYDRALAZINE HCL 20 MG/ML VIAL IV PRN ×2 (05:14→20:45)
[2019-02-13] MEDS ORDERED: FUROSEMIDE INJ 10 MG/ML 2 ML VIAL IV ONE (06:30)
--- NOTE | 2019-02-13 07:03 | Diagnostic Imaging Report ---
Knee limited left CPT code: 52771 Indication: Fall, pain Technique: AP and lateral view obtained of the left knee. Comparison: Left Foot x-rays 05/31/2017 Findings: Intramedullary joyce is partially imaged within the proximal tibia. The visualized hardware is intact without evidence of failure. The distal femur and patella are intact and normally aligned. There are mild degenerative changes of the knee. No suprapatellar joint effusion. Anterior infrapatellar soft tissue swelling. IMPRESSION: No acute fracture or evidence of hardware failure. Infrapatellar soft tissue swelling. Signed by: Dr. Funmi Jang MD on 02/13/2019 6:59 AM
[2019-02-13] MEDS: INSULIN LISPRO 100 UNIT/1 ML 3ML VIAL SQ SCH ×4 (07:52→22:13)
[2019-02-13] MEDS: METOPROLOL TARTRATE 50 MG TAB PO SCH (07:56)
[2019-02-13] MEDS: HYDROCHLOROTHIAZIDE 25 MG TAB PO SCH (07:56)
[2019-02-13] MEDS: VANCOMYCIN 500MG/NS 0.9% 100ML 100 ML IV SCH ×2 (07:56→20:43)
[2019-02-13] MEDS: BENAZEPRIL HCL 10 MG TAB PO SCH (07:57)
[2019-02-13] MEDS: MUPIROCIN 2% OINT 22 GM TUBE TOP SCH ×2 (08:11→17:36)
[2019-02-13] MEDS ORDERED: NIFEDIPINE CR 30 MG TAB PO SCH (09:00)
--- NOTE | 2019-02-13 15:38 | Progress Note ---
DATE: 02/13/2019 SUBJECTIVE: The patient at bedside, doing somewhat better, does have some swelling from his left knee. Does relate he had some chills last night, but feeling better now. He denies any history of fever, chills, nausea, or vomiting at this point. OBJECTIVE: VITAL SIGNS: Afebrile, pulse rate 65, respirations 18, blood pressure 180/85, and O2 saturation 98%. EXTREMITIES: Cellulitis of the left lower extremity seems to be getting a little bit better. Does have a mass to the anterior aspect of the left patellar cap inferiorly. Ulcerations to the left lower extremity continue to improve, less than 1.5 cm in diameter with no drainage. LABORATORY DATA: Show white blood cell count dropping to 8.1. ASSESSMENT: Cellulitis, diabetic neuropathy, possible abscess, anterior aspect, left knee. PLAN: We will continue IV antibiotics. Continue local wound care. If not any better, the patient may need to have the knee I and D'ed. we will continue to follow. ANTHONY Ricks/ANDRES /[id number]
--- NOTE | 2019-02-13 15:47 | Diagnostic Imaging Report ---
Exam: Limited soft tissue ultrasound of the left lower extremity History: Possible left patellar abscess. Comparison: None. Findings/Impression: Limited ultrasound was performed in the soft tissues adjacent to the left patella. There is a 4.1 x 1.3 cm soft tissue heterogeneous collection in the area of clinical concern with surrounding hyperemia. Surrounding subcutaneous edema. Findings are suspicious for abscess. Signed by: Dr. Jalen Baer MD on 02/13/2019 3:44 PM
[2019-02-14] VITALS (8 sets, daily range): BP systolic 140–173; BP diastolic 67–87
[2019-02-14 05:09] LABS: BASOPHILS # (AUTO) 0.1 (0.0-0.1); BASOPHILS % 0.8 % (0.0-1.0); EOSINOPHILS # (AUTO) 0.5 (0.0-0.4); EOSINOPHILS % 5.4 % (0.0-6.0); HEMATOCRIT 34.4 % (38.2-49.6); HEMOGLOBIN 11.2 g/dL (14.0-18.0); LYMPHOCYTES # (AUTO) 1.4 (1.0-3.2); MEAN CORPUSCULAR HEMOGLOBIN 30.3 pg (28-32); MEAN CORPUSCULAR HGB CONC 32.6 g/dL (31-35); MONOCYTES # (AUTO) 0.7 (0.2-0.8); MONOCYTES % 8.6 % (4.4-11.3); NEUTROPHILS # (AUTO) 5.8 (2.1-6.9); NEUTROPHILS % 68.7 % (38.7-80.0); PLATELET COUNT 281 x10e3/uL (140-360); RED CELL DISTRIBUTION WIDTH 12.2 % (11.7-14.4)
[2019-02-14 05:40] LABS: ANION GAP 15.3 mmol/L (8-16); CALCIUM 8.7 mg/dL (8.4-10.2); CREATININE, SERUM 2.24 mg/dL (0.72-1.25); POTASSIUM 4.3 mmol/L (3.5-5.1)
[2019-02-14] MEDS: PIPERACILLIN/TAZO 2.25 GM 50 ML IV SCH ×3 (05:40→21:07)
[2019-02-14] MEDS: INSULIN LISPRO 100 UNIT/1 ML 3ML VIAL SQ SCH ×4 (08:51→21:30)
[2019-02-14] MEDS ORDERED: NON-FORMULARY MEDICATION (Glipizide (Glipizide Xl) 10 MG) PO SCH (09:00)
[2019-02-14] MEDS: HYDROCHLOROTHIAZIDE 25 MG TAB PO SCH (09:01)
[2019-02-14] MEDS: BENAZEPRIL HCL 10 MG TAB PO SCH (09:02)
[2019-02-14] MEDS: GLIPIZIDE 5 MG TAB ER PO SCH (09:02)
[2019-02-14] MEDS: MUPIROCIN 2% OINT 22 GM TUBE TOP SCH ×2 (09:02→17:21)
[2019-02-14] MEDS: METOPROLOL TARTRATE 50 MG TAB PO SCH ×2 (09:02→17:22)
[2019-02-14] MEDS: NIFEDIPINE CR 30 MG TAB PO SCH ×2 (09:02→17:22)
[2019-02-14] MEDS: VANCOMYCIN 500MG/NS 0.9% 100ML 100 ML IV SCH ×2 (09:03→19:46)
[2019-02-14] MEDS ORDERED: LIDOCAINE HCL 1% LOCAL INJ 20 ML VIAL INJ ONE ×2 (10:30→11:00)
[2019-02-14] MEDS ORDERED: SODIUM CHLORIDE 0.9% 250ML 250 ML ONE (19:39)
[2019-02-14] MEDS: MORPHINE SULFATE 2 MG/ML SYR 1ML IV PRN (19:46)
--- NOTE | 2019-02-14 20:03 | Operative Report ---
DATE OF PROCEDURE: 02/14/2019 SURGEON: Austin Moore MD PREOPERATIVE DIAGNOSIS: Left knee abscess. POSTOPERATIVE DIAGNOSIS: Left knee abscess. PROCEDURE: Incision and drainage of left knee abscess. DIRECTOR OF EXHIBITS: None. ANESTHESIA: Local. INDICATION: A 59-year-old male, 5-day history of left knee swelling with redness consistent with abscess formation. He has consented for I and D under local anesthesia, attendant risks discussed. PROCEDURE FINDING: Large abscess in the anterior knee. DESCRIPTION OF PROCEDURE: The patient was brought in his room and placed in supine position. The knee anteriorly was prepped with Betadine and draped in sterile fashion. Local anesthesia 1% lidocaine was injected into the skin, subcutaneous tissue of the anterior knee overlying the roof of the abscess. We then made a cruciate incision 3 x 3 cm entering the abscess cavity into large amount of thick purulent material that was evacuated. The cavity is explored with a Q-tip to break up all loculations. Sanguineous bleeding followed. We then packed the cavity tight for hemostasis, which was achieved. Pressure dressing with 4 x 4 and Kerlix roll. The patient tolerated the procedure well. ESTIMATED BLOOD LOSS: Approximately 20 mL. Austin Moore MD [facility] /[id number]
--- NOTE | 2019-02-14 20:03 | Progress Note ---
DATE: 02/14/2019 SUBJECTIVE: The patient is seen at bedside, accompanied by , rates he is doing a little bit better. Still having some redness and swelling to the left lower extremity. Denies any history of fever, chills, nausea, or vomiting. OBJECTIVE: VITAL SIGNS: Afebrile, pulse rate 63, respirations 18, blood pressure 156/79, and O2 saturation 98%. EXTREMITIES: Left lower extremity, still some swelling surrounding the knee. Ulcerations are healing slowly. Positive for edema, left lower extremity compared to right with pedal pulses palpable. LABORATORY DATA: Show white blood cell count dropping to 8.5, hemoglobin 11.2 with a platelet count of 281. ASSESSMENT: Abscess, left knee; grade 2 ulcers multiple to the left leg with cellulitis and diabetic neuropathy. PLAN: The patient relates that they will be having an I and D of the abscess today. We will continue IV antibiotics. Continue local wound care with Bactroban to all affected areas. Continue IV vancomycin and Zosyn. We will continue to follow. ANTHONY Ricks/ANDRES /[id number]
[2019-02-15] VITALS (9 sets, daily range): BP systolic 140–168; BP diastolic 68–84
--- NOTE | 2019-02-15 01:55 | Consultation ---
DATE OF CONSULTATION: 02/14/2019 CHIEF COMPLAINT: Left knee abscess. HISTORY OF PRESENT ILLNESS: The patient is a 59-year-old male with diabetes, renal insufficiency with a chief complaint of 5-day history of left knee swelling. No history of trauma or insect bite. The patient has subjective fevers. PAST MEDICAL HISTORY: Positive for diabetes, renal insufficiency, and hypertension. PAST SURGICAL HISTORY: Positive for previous amputation of toes in the left foot and left knee surgery. ALLERGIES: HE HAS NO DRUG ALLERGIES. SOCIAL HABITS: The patient denies smoking alcohol, only beers. REVIEW OF SYSTEMS: No chest pain or shortness of breath. PHYSICAL EXAMINATION: VITAL SIGNS: The patient had a low-grade temperature. Otherwise, vital signs are stable. GENERAL: He is awake, alert, and in moderate discomfort. HEENT: Sclerae nonicteric. NECK: Supple. LUNGS: Clear. HEART: Regular rate and rhythm. ABDOMEN: Soft and nontender. EXTREMITIES: Reveals a swollen left knee with fluctuance consistent with abscess formations on the anterior knee cap. LABORATORY DATA: White cell count is 8, hemoglobin is 11, and creatinine is 2.2. ASSESSMENT: Left knee abscess. PLAN: Incision and drainage of left knee abscess under local anesthesia. Attendant risks discussed. Austin Moore MD [facility] /[id number]
[2019-02-15 05:36] LABS: BASOPHILS # (AUTO) 0.1 (0.0-0.1); BASOPHILS % 0.8 % (0.0-1.0); EOSINOPHILS # (AUTO) 0.4 (0.0-0.4); EOSINOPHILS % 5.9 % (0.0-6.0); HEMATOCRIT 33.1 % (38.2-49.6); HEMOGLOBIN 10.5 g/dL (14.0-18.0); LYMPHOCYTES # (AUTO) 1.3 (1.0-3.2); LYMPHOCYTES % 17.1 % (18.0-39.1); MEAN CORPUSCULAR HEMOGLOBIN 30.4 pg (28-32); MEAN CORPUSCULAR HGB CONC 31.7 g/dL (31-35); MEAN CORPUSCULAR VOLUME 95.9 fL (81-99); MONOCYTES # (AUTO) 0.8 (0.2-0.8); MONOCYTES % 10.6 % (4.4-11.3); NEUTROPHILS # (AUTO) 4.8 (2.1-6.9); NEUTROPHILS % 65.1 % (38.7-80.0); PLATELET COUNT 264 x10e3/uL (140-360); RED BLOOD COUNT 3.45 x10e6/uL (4.3-5.7); RED CELL DISTRIBUTION WIDTH 12.1 % (11.7-14.4)
[2019-02-15] MEDS: PIPERACILLIN/TAZO 2.25 GM 50 ML IV SCH ×3 (05:50→22:10)
[2019-02-15 06:01] LABS: ANION GAP 14.5 mmol/L (8-16); CALCIUM 8.7 mg/dL (8.4-10.2); CREATININE, SERUM 2.12 mg/dL (0.72-1.25); POTASSIUM 4.5 mmol/L (3.5-5.1)
[2019-02-15] MEDS: INSULIN LISPRO 100 UNIT/1 ML 3ML VIAL SQ SCH ×4 (07:30→20:50)
[2019-02-15] MEDS: GLIPIZIDE 5 MG TAB ER PO SCH (08:37)
[2019-02-15] MEDS: CLONIDINE HCL 0.1 MG TAB PO SCH ×2 (08:37→17:28)
[2019-02-15] MEDS: HYDROCHLOROTHIAZIDE 25 MG TAB PO SCH (08:37)
[2019-02-15] MEDS: BENAZEPRIL HCL 10 MG TAB PO SCH (08:38)
[2019-02-15] MEDS: NIFEDIPINE CR 30 MG TAB PO SCH ×2 (08:38→17:29)
[2019-02-15] MEDS: METOPROLOL TARTRATE 50 MG TAB PO SCH ×2 (08:38→17:28)
[2019-02-15] MEDS: HYDROCODONE/APAP 5MG-325MG TAB PO PRN (09:20)
--- NOTE | 2019-02-15 10:05 | NUR ---
Dressing presented with blood drainage. Wound care provided at this time. Pt tolerated well. New dressing CDI.
[2019-02-15] MEDS: VANCOMYCIN 500MG/NS 0.9% 100ML 100 ML IV SCH ×2 (10:08→20:52)
[2019-02-15] MEDS: MUPIROCIN 2% OINT 22 GM TUBE TOP SCH ×2 (10:08→17:13)
--- NOTE | 2019-02-15 13:22 | NUR ---
1 foot of packing removed at this time per MD order, pt tolerated well. Pain 09/16. New dressing applied to site, CDI.
--- NOTE | 2019-02-15 13:27 | Progress Note ---
DATE: 02/15/2019 SUBJECTIVE: The patient is seen at bedside, feeling somewhat better. Relates he had bedside I and D to the left knee yesterday by Dr. Moore. Denies any history of fever, chills, nausea, or vomiting. OBJECTIVE: VITAL SIGNS: Afebrile, pulse rate 63, respirations 18, blood pressure 156/84, and O2 saturation 96%. EXTREMITIES: Left lower extremity looking better. Still swollen when compared to contralateral side. Multiple ulcerations healing slowly. Pedal pulses diminished to both the DP and PT. ASSESSMENT: Diabetic neuropathy, cellulitis, edema left foot, status post I and D, left knee per Dr. Moore. PLAN: Continue IV antibiotics. Continue local wound care. Continue to monitor the patient. Continue offloading. ANTHONY Ricks/ANDRES /[id number]
[2019-02-15] MEDS: MORPHINE SULFATE 2 MG/ML SYR 1ML IV PRN (14:58)
[2019-02-15] MEDS ORDERED: SODIUM CHLORIDE 0.9% 250ML 250 ML ONE (22:54)
[2019-02-16 03:48] VITALS: BP 145/75
[2019-02-16] MEDS: PIPERACILLIN/TAZO 2.25 GM 50 ML IV SCH ×3 (05:00→22:13)
[2019-02-16 05:45] LABS: ANION GAP 13.6 mmol/L (8-16); CALCIUM 8.4 mg/dL (8.4-10.2); CREATININE, SERUM 2.18 mg/dL (0.72-1.25); POTASSIUM 4.6 mmol/L (3.5-5.1)
[2019-02-16 07:00] LABS: BASOPHILS # (AUTO) 0.1 (0.0-0.1); BASOPHILS % 1.2 % (0.0-1.0); EOSINOPHILS # (AUTO) 0.4 (0.0-0.4); EOSINOPHILS % 6.1 % (0.0-6.0); HEMATOCRIT 31.2 % (38.2-49.6); LYMPHOCYTES # (AUTO) 1.3 (1.0-3.2); LYMPHOCYTES % 19.6 % (18.0-39.1); MEAN CORPUSCULAR HEMOGLOBIN 30.8 pg (28-32); MEAN CORPUSCULAR HGB CONC 32.1 g/dL (31-35); MONOCYTES # (AUTO) 0.6 (0.2-0.8); MONOCYTES % 8.9 % (4.4-11.3); NEUTROPHILS # (AUTO) 4.4 (2.1-6.9); NEUTROPHILS % 63.5 % (38.7-80.0); PLATELET COUNT 277 x10e3/uL (140-360); RED BLOOD COUNT 3.25 x10e6/uL (4.3-5.7); RED CELL DISTRIBUTION WIDTH 11.9 % (11.7-14.4)
--- NOTE | 2019-02-16 07:00 | NUR ---
BEDSIDE SHIFT REPORT RECEIVED FROM THE CONTROLLER REPAIRER AND TESTER RN. PT DENIES NEEDS AT THIS TIME.
[2019-02-16 08:00] VITALS: BP 175/86
[2019-02-16] MEDS: VANCOMYCIN 500MG/NS 0.9% 100ML 100 ML IV SCH ×2 (08:14→21:00)
[2019-02-16] MEDS: HYDROCHLOROTHIAZIDE 25 MG TAB PO SCH (08:17)
[2019-02-16] MEDS: CLONIDINE HCL 0.1 MG TAB PO SCH ×2 (08:17→18:42)
[2019-02-16] MEDS: NIFEDIPINE CR 30 MG TAB PO SCH ×2 (08:19→21:07)
[2019-02-16] MEDS: GLIPIZIDE 5 MG TAB ER PO SCH (08:20)
[2019-02-16] MEDS: INSULIN LISPRO 100 UNIT/1 ML 3ML VIAL SQ SCH ×4 (08:30→21:44)
[2019-02-16 08:32] VITALS: BP 175/86
[2019-02-16] MEDS: METOPROLOL TARTRATE 50 MG TAB PO SCH ×2 (09:00→21:07)
[2019-02-16] MEDS: BENAZEPRIL HCL 10 MG TAB PO SCH (10:00)
[2019-02-16] MEDS: MUPIROCIN 2% OINT 22 GM TUBE TOP SCH ×2 (10:00→17:00)
[2019-02-16 12:00] VITALS: BP 156/71
--- NOTE | 2019-02-16 12:35 | Progress Note ---
DATE: 02/16/2019 SUBJECTIVE: The patient is seen, doing somewhat better. Decreased cellulitis of the left lower extremity, decreased pain. Denies any history of fever, chills, nausea, or vomiting. OBJECTIVE: VITAL SIGNS: Afebrile, pulse rate 60, respirations 20, blood pressure 145/75, O2 saturation 95%. LABORATORY DATA: Labs show a white blood cell count of 6.8, hemoglobin 10.0 with a platelet count of 277, blood glucose of 183. Left lower extremity looking better. Ulcerations healing slowly, decreased edema. Pedal pulses palpable to both the DP and PT, but somewhat diminished. ASSESSMENT: Diabetic neuropathy. Multiple grade 1/2 ulcerations with edema and cellulitis, left leg. PLAN: We will continue IV antibiotic with his vancomycin and Zosyn. Continue Bactroban ointment. Continue offloading. We will continue to follow. ANTHONY Ricks/ANDRES /[id number]
[2019-02-16 16:00] VITALS: BP 162/80
--- NOTE | 2019-02-16 16:31 | NUR ---
Nutrition LOS Note RD Recommendation(s) for Physician / Nutrition Prescription: continue with diet as prescribed Plan of Care: Patient has been screened and assessed for nutrition risk. At this time, the patient does not pose any nutrition risk. No further nutrition intervention is warranted at this time. Will re-evaluate if consulted by medical staff. Nutrition reason for involvement: LOS Primary Dx: Multiple grade 1/2 ulcerations with edema and cellulitis, left leg, diabetic neuropathy PMH: insulin-dependent diabetes, hypertension, and hypercholesterolemia Ht: 66in Wt: 256lb BMI: 41.3kg/m2 IBW: 142lb +/- 10% RD Assessment: (02/16) 59yo M, who was admitted for LLE cellulitis. Visited pt in the room. Pt reported good appetite. PCT recorded 90-100% meal intake. Pt denied any GI complains. LBM 02/15. Pt denied any chewing or swallowing issue. Weight has been stable. Current diet is appropriate and adequate. Current diet: ADA 1800 Malnutrition Evaluation (02/16) The patient does not meet criteria for a specified degree of malnutrition at this time. Will re-evaluate at follow-up as appropriate. Diet Education Needs Assessment: Diet education not indicated. Nutrition Care Level: Low Signed by Ludivina Wynne, MS, RD, LD
[2019-02-16] MEDS ORDERED: DEXTROSE 50% SYRINGE 50 ML IV PRN ×2 (18:45→20:45)
--- NOTE | 2019-02-16 19:00 | NUR ---
BEDSIDE SHIFT REPORT GIVEN TO THE LINE REPAIRER RN. PT DENIED FURTHER NEEDS.
--- NOTE | 2019-02-16 20:55 | NUR ---
АНДРЕЙ AQUATIC LABORER IN UNIT NOTIFIED АНДРЕЙ REGARDING VANCOMYCIN TROUGH LEVEL,NO NEW ORDERS RECEIVED.
[2019-02-16] MEDS ORDERED: INSULIN REGULAR, HUMAN 100 UNIT/1 ML 3ML VIAL SQ SCH (21:00)
[2019-02-16 21:13] VITALS: BP 184/82
[2019-02-17] VITALS (7 sets, daily range): BP systolic 150–176; BP diastolic 67–83
[2019-02-17 05:18] LABS: BASOPHILS # (AUTO) 0.1 (0.0-0.1); BASOPHILS % 0.9 % (0.0-1.0); EOSINOPHILS # (AUTO) 0.5 (0.0-0.4); EOSINOPHILS % 5.3 % (0.0-6.0); HEMATOCRIT 34.3 % (38.2-49.6); HEMOGLOBIN 10.9 g/dL (14.0-18.0); LYMPHOCYTES # (AUTO) 1.2 (1.0-3.2); MEAN CORPUSCULAR HEMOGLOBIN 30.4 pg (28-32); MEAN CORPUSCULAR HGB CONC 31.8 g/dL (31-35); MEAN CORPUSCULAR VOLUME 95.5 fL (81-99); MONOCYTES # (AUTO) 0.6 (0.2-0.8); MONOCYTES % 6.7 % (4.4-11.3); NEUTROPHILS # (AUTO) 6.5 (2.1-6.9); NEUTROPHILS % 73.4 % (38.7-80.0); PLATELET COUNT 307 x10e3/uL (140-360); RED BLOOD COUNT 3.59 x10e6/uL (4.3-5.7); RED CELL DISTRIBUTION WIDTH 11.9 % (11.7-14.4)
[2019-02-17 05:40] LABS: ANION GAP 13.5 mmol/L (8-16); CALCIUM 8.5 mg/dL (8.4-10.2); CREATININE, SERUM 2.05 mg/dL (0.72-1.25); POTASSIUM 4.5 mmol/L (3.5-5.1)
[2019-02-17] MEDS: PIPERACILLIN/TAZO 2.25 GM 50 ML IV SCH ×3 (06:30→22:00)
--- NOTE | 2019-02-17 07:00 | NUR ---
BEDSIDE SHIFT REPORT RECEIVED FROM MANAGER SECURITY RN. PT DENIES NEEDS AT THIS TIME.
--- NOTE | 2019-02-17 07:01 | NUR ---
BEDSIDE SHIFT REPORT GIVEN TO ONCOMING NURSE.PT RESTING IN BED WITH NO S/S OF DISTRESS.
[2019-02-17] MEDS: INSULIN LISPRO 100 UNIT/1 ML 3ML VIAL SQ SCH ×4 (08:00→20:54)
[2019-02-17] MEDS: FAMOTIDINE 20 MG TAB PO SCH ×2 (08:15→17:54)
[2019-02-17] MEDS: CLONIDINE HCL 0.1 MG TAB PO SCH ×2 (08:40→17:54)
[2019-02-17] MEDS: GLIPIZIDE 5 MG TAB ER PO SCH (08:41)
[2019-02-17] MEDS: BENAZEPRIL HCL 10 MG TAB PO SCH (08:41)
[2019-02-17] MEDS: NIFEDIPINE CR 30 MG TAB PO SCH ×3 (08:42→20:53)
[2019-02-17] MEDS: HYDROCHLOROTHIAZIDE 25 MG TAB PO SCH (08:43)
[2019-02-17] MEDS: VANCOMYCIN 500MG/NS 0.9% 100ML 100 ML IV SCH ×2 (08:46→20:45)
[2019-02-17] MEDS: MUPIROCIN 2% OINT 22 GM TUBE TOP SCH ×2 (08:56→17:52)
[2019-02-17] MEDS ORDERED: NIFEDIPINE CR 30 MG TAB PO SCH (09:00)
--- NOTE | 2019-02-17 10:15 | NUR ---
WOUND DRESSING REMOVED PER THE ORDER FROM THE DR. PT TOLERATED WELL. DENIES NEEDS AT THIS TIME.
[2019-02-17] MEDS: FOLIC ACID/CYANOCOB/PYRIDOXINE TAB PO SCH (10:45)
[2019-02-17] MEDS: METOPROLOL TARTRATE 50 MG TAB PO SCH ×3 (10:45→20:53)
--- NOTE | 2019-02-17 13:56 | Progress Note ---
DATE: 02/17/2019 SUBJECTIVE: The patient at bedside doing somewhat better. Decreased discomfort to the left lower extremity. He is denying any history of fever, chills, nausea, or vomiting. OBJECTIVE: VITAL SIGNS: Afebrile, pulse rate 62, respirations 18, blood pressure 150/67, and O2 saturation 96%. EXTREMITIES: Cellulitis and edema to the left lower extremity continues to get better. Still increased skin temperature when compared to contralateral side. Has multiple grade 1 lesions of the left foot with bloody discharge noted to the left knee status post I and D. Negative foul smell to the dressing. Pedal pulses are diminished. ASSESSMENT: Diabetic neuropathy, cellulitis, left foot; status post I and D, left knee with multiple grade 1 lesions/ulcers. PLAN: Continue Bactroban ointment. Continue IV antibiotics. We will continue to follow. The patient getting better slowly. ANTHONY Ricks/ANDRES /[id number]
--- NOTE | 2019-02-17 19:00 | NUR ---
BEDSIDE SHIFT REPORT GIVEN TO THE MEASUREMENT PSYCHOLOGIST RN. PT DENIED FURTHER NEEDS.
[2019-02-18 00:42] VITALS: BP 156/77
[2019-02-18] MEDS: PIPERACILLIN/TAZO 2.25 GM 50 ML IV SCH ×2 (05:29→13:34)
[2019-02-18 06:53] VITALS: BP 155/75
--- NOTE | 2019-02-18 07:00 | NUR ---
BEDSIDE SHIFT REPORT RECEIVED FROM THE IMPROVEMENT ENGINEER RN. PT DENIES NEEDS AT THIS TIME.
--- NOTE | 2019-02-18 07:11 | NUR ---
BEDSIDE SHIFT REPORT GIVEN TO ONCOMING NURSE.PT RESTING IN BED WITH NO S/S OF DISTRESS.CALL LIGHT WITHIN EASY REACH.
[2019-02-18] MEDS: INSULIN LISPRO 100 UNIT/1 ML 3ML VIAL SQ SCH ×2 (08:00→12:00)
[2019-02-18] MEDS: FAMOTIDINE 20 MG TAB PO SCH (08:15)
[2019-02-18 09:05] VITALS: BP 108/53
[2019-02-18] MEDS: VANCOMYCIN 500MG/NS 0.9% 100ML 100 ML IV SCH (09:07)
[2019-02-18 09:10] VITALS: BP 151/82
[2019-02-18] MEDS: GLIPIZIDE 5 MG TAB ER PO SCH (09:14)
[2019-02-18] MEDS: FOLIC ACID/CYANOCOB/PYRIDOXINE TAB PO SCH (09:14)
[2019-02-18] MEDS: HYDROCHLOROTHIAZIDE 25 MG TAB PO SCH (09:14)
[2019-02-18] MEDS: BENAZEPRIL HCL 10 MG TAB PO SCH (09:15)
[2019-02-18] MEDS: CLONIDINE HCL 0.1 MG TAB PO SCH (09:15)
[2019-02-18] MEDS: NIFEDIPINE CR 30 MG TAB PO SCH (09:16)
[2019-02-18] MEDS: METOPROLOL TARTRATE 50 MG TAB PO SCH (09:17)
[2019-02-18] MEDS: MUPIROCIN 2% OINT 22 GM TUBE TOP SCH (09:36)
[2019-02-18 09:40] VITALS: BP 151/82
--- NOTE | 2019-02-18 10:30 | NUR ---
YOSVANY TO D/C PT PER DR. ALEGRIA. INFORMED THE SAME TO JEFFREY BENTON
[2019-02-18] MEDS ORDERED: METOPROLOL TART50 MG PO (11:27)
[2019-02-18] MEDS ORDERED: NIFEDIPINE ER30 M1 PO (11:27)
[2019-02-18] MEDS ORDERED: CEFTIN PO (11:27)
--- NOTE | 2019-02-18 11:35 | NUR ---
OKAY TO D/C PT PER JEFFREY. PT IS WAITING FOR FAMILY TO PICK HIM.
--- NOTE | 2019-02-18 12:00 | NUR ---
PER THE PT, PT IS WORKING AND WILL BE HERE BY 2 PM. NO ONE ELSE AVAILABLE TO PICK THE PT.
[2019-02-18 12:28] VITALS: BP 158/74
[2019-02-18] MEDS ORDERED: ONDANSETRON HCL 4 MG ORAL DISINTEGRATING TAB PO PRN (12:30)
--- NOTE | 2019-02-18 13:26 | Progress Note ---
DATE: 02/18/2019 SUBJECTIVE: The patient is seen at bedside, doing better. Decreased swelling to the left lower extremity. Denies any history of fever, chills, nausea, or vomiting. OBJECTIVE: VITAL SIGNS: Afebrile. Vital signs stable. EXTREMITIES: Cellulitis to the left lower extremity continues to improve. Decreased edema. I and D site to the left knee is nice and clean. Some drainage, but negative foul smell. Has multiple grade 1-2 ulceration to the left lower extremity with positive edema. Decreased circulatory status to both the DP and PT. ASSESSMENT: Diabetic neuropathy, multiple grade 1-2 ulcerations, cellulitis, resolving. PLAN: Okay to discharge today on oral antibiotics. The patient is instructed to follow up in the office next week. Continue applying Bactroban ointment to affected areas including I and D site. Continue dressing to be changed before discharge if okay with Dr. Lehman. ANTHONY Ricks/ANDRES /[id number]
--- NOTE | 2019-02-18 14:15 | NUR ---
PT DISCHARGED HOME SAFELY WITH HIS . PT ESCORTED VIA WHEEL CHAIR TO THE FRONT ENTRANCE. LAC IV 20 G REMOVED. TIP INTACT. NO BLEEDING NOTED. DRESSING APPLIED. PT DENIED FURTHER NEEDS.
--- NOTE | 2019-02-20 05:47 | Discharge Summary ---
ADMISSION DIAGNOSES: Left lower extremity cellulitis, hypertension complicated by chronic kidney disease 3, hyperlipidemia, type 2 diabetes complicated by chronic kidney disease 3, morbid obesity with a BMI of 40.3, chronic kidney disease 3. DISCHARGE DIAGNOSES: Left lower extremity cellulitis, hypertension complicated by chronic kidney disease 3, hyperlipidemia, type 2 diabetes complicated by chronic kidney disease 3, morbid obesity with a BMI of 40.3, chronic kidney disease 3, Staph of the left knee abscess present on admission, rule out deep venous thrombosis. HISTORY: Type 2 diabetes, hypertension, CKD 3, hyperlipidemia. SURGICAL HISTORY: Left knee surgery, left great toe amputation with flap and tonsillectomy. FAMILY HISTORY: The patient's sister had cancer. SOCIAL HISTORY: The patient drinks 2-3 beers a day. HOSPITAL COURSE: A 59-year-old male admits with complaints of left lower extremity redness and swelling that began 1-2 weeks ago. He had a sore on his lower leg after falling in December and January, but the redness and swelling just started. He denies fever, drainage and recent antibiotic use. On admission, venous Doppler was negative for DVT. The patient admitted to pa that he fell while in the hospital, but denied it to nurses, but by that time, an x-ray had already been done of the knee, which was negative for fracture. He then had an ultrasound of the knee that showed an abscess. A bedside I and D was done and the wound culture came back positive for Staph. Blood cultures were negative. The patient will discharge home with Ceftin, metoprolol, and nifedipine. He will continue other home medicines. He will follow up with primary care in 1 to 2 weeks. The patient understands discharge instructions and agrees to plan. Vital signs stable, patient afebrile. Dictated by Gale Matute NP MD [facility]/ANDRES /[id number]
== END 2019-02-18 14:15 | disposition home or self-care (01) | DRG 872 ==
LOC: ER 18:50 → ERHOLD 20:54 → MED/SURG2 22:33
PROVIDERS: ADMIT Internal Medicine; ATTEND Internal Medicine
PROC: 0H9LXZX Drainage of Left Lower Leg Skin, External Approach, Diagnostic (ICD-10-PCS; principal; 2019-02-14)
DX: A41.9 Sepsis, unspecified organism (principal); L03.116 Cellulitis of left lower limb; L02.416 Cutaneous abscess of left lower limb; E87.1 Hypo-osmolality and hyponatremia; Z68.41 Body mass index [BMI] 40.0-44.9, adult; L97.829 Non-pressure chronic ulcer of other part of left lower leg with unspecified severity; E11.40 Type 2 diabetes mellitus with diabetic neuropathy, unspecified; I12.9 Hypertensive chronic kidney disease with stage 1 through stage 4 chronic kidney disease, or unspecified chronic kidney disease; E11.22 Type 2 diabetes mellitus with diabetic chronic kidney disease; E78.5 Hyperlipidemia, unspecified; E78.00 Pure hypercholesterolemia, unspecified; E11.649 Type 2 diabetes mellitus with hypoglycemia without coma; E11.65 Type 2 diabetes mellitus with hyperglycemia; F10.10 Alcohol abuse, uncomplicated; N18.3 Chronic kidney disease, stage 3 (moderate); E66.9 Obesity, unspecified; Z79.4 Long term (current) use of insulin; B95.61 Methicillin susceptible Staphylococcus aureus infection as the cause of diseases classified elsewhere; W19.XXXA Unspecified fall, initial encounter; Z91.81 History of falling; Y93.9 Activity, unspecified; Y92.230 Patient room in hospital as the place of occurrence of the external cause; Z80.9 Family history of malignant neoplasm, unspecified; Z89.422 Acquired absence of other left toe(s); Z89.412 Acquired absence of left great toe; Z83.3 Family history of diabetes mellitus; Z82.49 Family history of ischemic heart disease and other diseases of the circulatory system; E11.42 Type 2 diabetes mellitus with diabetic polyneuropathy
CPT/HCPCS: 36415; 76882; 80048; 80053; 80061; 80202; 82948; 83036; 83880; 84439; 84443; 85025; 87040; 87071; 87075; 87186; 87205; 93971; 97139; 99284; J0360; J1817; J1940; J2001; J2270; J2405; J2543; J3370; J7030; J7050; J7799